=== PATIENT | male | born 1940 | race Caucasian/White ===

== ENCOUNTER 2018-01-23 05:51 | Inpatient (IN) | payer OTHER ==
[~2018-01-23] VITALS: Ht 167.6 cm; Wt 82.9 kg
[~2018-01-23 05:51] MED LIST: ASPCH81X PO; ATEN-173 PO; ATOR-22 PO; BENA-3 PO; DORZ1SOL6 OPR; GLIP-199 PO; LATA0.009 OPR; METF500T PO; MULT-506 PO; PLV75 PO; URSO300C4 PO
[2018-01-23] MEDS ORDERED: BENA-4 PO (06:33)
[2018-01-23] MEDS ORDERED: ATOR-24 PO (06:34)
[2018-01-23] MEDS ORDERED: METF500T5 PO (06:40)
--- NOTE | 2018-01-23 06:40 | EMERGENCY ROOM VISIT NOTE ---
History Report prepared by Linda: Awais Thomas Under the Supervision of: Dr. Donis Ovalles M.D. 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 and [facility]. This evening developed fever and nausea starting around 2300 last evening. History of Present Illness The patient is a 77 year old male with a history of diabetes, a heart attack with stent placement, reflux cholangitis and a cholecystectomy who presents to the Emergency Room with complaints of a worsening illness that started around 7 hours ago. Per the patient's , the patient is having another cholangitis attack, and the patient says that his current symptoms feel like his prior cholangitis bouts. The patient has been seen here 3 times in the past 6 years for cholangitis bouts, but it has been about 2 or 3 years since he had one here. He says that "bacteria backs up into the liver from the intestines". The patient notes that he has had multiple surgeries here and at [facility] for this. He says that his symptoms started around 2300 last night, but really worsened upon waking this morning. The patient states that he felt completely fine before 2300. He says that when he woke up, he had some abdominal pain, and felt like he had to burp. He then proceeded to have cold shakes, and had a noted temperature of 100.9. He says that he took Tylenol, but did not take his Cipro/ Flagyl. He states that he vomited 4 times this morning, and was having rigors. He says that he currently feels a bit better than when he did earlier this morning. The patient adds that he had a solid bowel movement 10 minutes before coming here. He denies any chest pain, shortness of breath, or urinary symptoms. Source of History: patient, spouse/significant other Onset: Around 7 hours ago Position: other (global) Symptom Intensity: thinks it is another cholangitis bout Quality: other (illness) Timing: worsening Associated Symptoms: + fevers, + chills (cold shakes), + nausea, + vomiting , + abdominal pain, No chest pain, No SOB, No urinary symptoms Review of Systems See HPI for pertinent positives & negatives. A total of 10 systems reviewed and were otherwise negative. Past Medical & Surgical Medical Problems: (1) Anginal pain (2) Carotid stenosis (3) DM2 (diabetes mellitus, type 2) (4) Glaucoma (5) HLD (hyperlipidemia) (6) HTN (hypertension) (7) Recurrent cholangitis (8) reflux cholangitis Surgical Problems: (1) H/O carotid endarterectomy (2) H/O hernia repair (3) History of cataract surgery (4) History of cholecystectomy (5) S/P cholecystectomy Old medical records were reviewed. Nurse's notes were reviewed and I agree with. Family History FH: cancer FH: diabetes mellitus FH: gallbladder disease FH: heart disease FH: hypertension Social History Smoking Status: Never Smoker Drug Use: none Marital Status: Housing Status: lives with significant other Occupation Status: retired Current/Historical Medications Scheduled Aspirin (Aspirin Chewable), 81 MG PO QAM Atorvastatin (Lipitor), 40 MG PO DAILY Benazepril/Hctz (Lotensin Hct), 1 TAB PO DAILY Clopidogrel (Plavix), 75 MG PO DAILY Dorzolamide Hcl-Timolol Maleat (Cosopt Oph), 1 DROPS OPR BID Fluticasone Propionate (Fluticasone Propionate), 2 SPRAYS BARON DAILY Glipizide (Glipizide Er), 10 MG PO BIDM Latanoprost 0.005% Oph (Xalatan 0.005% Oph), 1 DROP OPR HS Metformin Hcl Er (Glucophage Er), 500 MG PO DAILY Multivitamin (Multivitamin), 1 TAB PO DAILY Nitroglycerin (Nitrostat), 0.4 MG UT PRN Ursodiol (Actigall), 300 MG PO TIDM Miscellaneous Medications Acetaminophen (Tylenol Extra Strength) Allergies Coded Allergies: Sulfamethoxazole w/Trimethoprim (Verified Allergy, Mild, HIVES, 01/23/18) Physical Exam Vital Signs Date Time Temp Pulse Resp B/P (MAP) Pulse Ox O2 Delivery O2 Flow Rate FiO2 01/23/18 09:09 88 20 107/65 95 Room Air 01/23/18 08:55 95 Room Air 01/23/18 08:55 90 01/23/18 07:28 99 20 107/74 96 Room Air 01/23/18 05:57 37.4 116 22 139/79 97 Room Air Physical Exam General: Non-ill appearing older male in no acute distress. HEENT: Normal cephalic atraumatic. Pupils are equal round and reactive to light. Extraocular movements are intact. Oropharynx is pink with moist mucous membranes. No swelling of the mouth lips or tongue. Neck: Supple with a midline trachea. No meningeal signs or stiffness, no JVD or bruits. No Stridor. Chest: Clear to auscultation bilaterally. No wheezes or rhonchi. No increased work of breathing. Heart: regular rate and rhythm. Abdomen: Soft and minimally tender in the right upper quadrant, nondistended without rebound guarding or rigidity. Extremities: No cyanosis clubbing or edema. No calf tenderness or assymetry Spine/Back. Non tender to palpation. No CVA tenderness Skin: Good turgor without rashes. Neurologic exam: Cranial nerves two through 12 are intact. Motor and sensation are intact and symmetrical throughout. Medical Decision & Procedures Laboratory Results 01/23/18 06:39 Red Blood Count 5.13, Mean Corpuscular Volume 82.8, Mean Corpuscular Hemoglobin 30.0, Mean Corpuscular Hemoglobin Concent 36.2, Mean Platelet Volume 10.6, Neutrophils (%) (Auto) 87.1, Lymphocytes (%) (Auto) 8.6, Monocytes (%) (Auto) 3.3, Eosinophils (%) (Auto) 0.6, Basophils (%) (Auto) 0.2, Neutrophils # (Auto) 4.46, Lymphocytes # (Auto) 0.44, Monocytes # (Auto) 0.17, Eosinophils # (Auto) 0.03, Basophils # (Auto) 0.01 01/23/18 06:39 Test 01/23/18 06:39 01/23/18 06:48 01/23/18 07:03 White Blood Count 5.12 K/uL (4.8-10.8) Red Blood Count 5.13 M/uL (4.7-6.1) Hemoglobin 15.4 g/dL (14.0-18.0) Hematocrit 42.5 % (42-52) Mean Corpuscular Volume 82.8 fL (80-100) Mean Corpuscular Hemoglobin 30.0 pg (25-34) Mean Corpuscular Hemoglobin Concent 36.2 g/dl (32-36) Platelet Count 83 K/uL (130-400) Mean Platelet Volume 10.6 fL (7.4-10.4) Neutrophils (%) (Auto) 87.1 % Lymphocytes (%) (Auto) 8.6 % Monocytes (%) (Auto) 3.3 % Eosinophils (%) (Auto) 0.6 % Basophils (%) (Auto) 0.2 % Neutrophils # (Auto) 4.46 K/uL (1.4-6.5) Lymphocytes # (Auto) 0.44 K/uL (1.2-3.4) Monocytes # (Auto) 0.17 K/uL (0.11-0.59) Eosinophils # (Auto) 0.03 K/uL (0-0.5) Basophils # (Auto) 0.01 K/uL (0-0.2) RDW Standard Deviation 39.7 fL (36.4-46.3) RDW Coefficient of Variation 13.1 % (11.5-14.5) Immature Granulocyte % (Auto) 0.2 % Immature Granulocyte # (Auto) 0.01 K/uL (0.00-0.02) Anion Gap 10.0 mmol/L (3-11) Est Creatinine Clear Calc Drug Dose 61.5 ml/min Estimated GFR () 83.2 Estimated GFR (Non- 71.8 BUN/Creatinine Ratio 14.8 (10-20) Calcium Level 8.9 mg/dl (8.5-10.1) Total Bilirubin 3.4 mg/dl (0.2-1) Direct Bilirubin 0.6 mg/dl (0-0.2) Aspartate Amino Transf (AST/SGOT) 148 U/L (15-37) Alanine Aminotransferase (ALT/SGPT) 162 U/L (12-78) Alkaline Phosphatase 80 U/L (45-117) Total Protein 6.2 gm/dl (6.4-8.2) Albumin 3.5 gm/dl (3.4-5.0) Lipase 199 U/L (73-393) Bedside Troponin I < 0.030 ng/ml (0-0.045) Bedside Lactic Acid Venous 1.62 mmol/L (0.90-1.70) Laboratory studies as stated above per my review. Medications Administered Medications (Trade) Dose Ordered Sig/Santos Route Start Time Stop Time Status Last Admin Dose Admin Sodium Chloride 1,000 ml @ 999 mls/hr Q1H1M STAT IV 01/23/18 06:41 01/23/18 07:41 DC 01/23/18 06:41 999 MLS/HR Piperacillin Sod/ Tazobactam Sod (Zosyn Iv) 4.5 gm NOW STAT IV 01/23/18 06:41 01/23/18 06:43 DC 01/23/18 06:41 4.5 GM Potassium Chloride (Kcl 10 Meq / Wtr) 10 meq Q1H IV 01/23/18 08:15 01/23/18 09:16 DC 01/23/18 08:50 10 MEQ ECG Per My Interpretation Indication: vomiting Rate (beats per minute): 88 Rhythm: normal sinus Findings: no acute ischemic change, no ectopy Comparison ECG Date: compared to July 03 2016, rate has increased ED Course 0630: Past medical records reviewed. The patient was evaluated in room A3, and a complete history and physical examination were performed. 0641: Zosyn IV 4.5 gm, NSS 1000 ml @ 150 mls/hr IV, NSS 1000 ml @ 999 mls/hr IV. 0726: Upon reevaluation, the patient is stable and getting antibiotics. I discussed the results and treatment plan with the patient. He verbalized agreement of the treatment plan. The patient will be evaluated for further management. 0730: Discussed the patient's case with Dr. Vandana Robins salesperson [employer]. The patient will be evaluated for further management. Medical Decision Differentials include, but are not limited to; cholangitis, sepsis, electrolyte or metabolic abnormality, cardiac disease. This patient comes in as described above. He has a history of recurrent cholangitis after having a gallbladder removal. He typically gets IV antibiotics and admitted. He did have a temperature at home. He also vomited a few times. Given his history and his presentation, I'm very concerned that this is recurrent cholangitis and ordered antibiotics immediately after seen him I also order blood cultures and other blood work. He was ordered Zosyn 4.5 g IV. Blood cultures were obtained. His white count lactic acid not elevated. He was hydrated with IV normal saline. His total bilirubin is moderately elevated and the 3 range. Additionally, LFTs are mildly elevated. He has no other electrolyte or metabolic abnormalities of significance. I do think he needs to be admitted for IV antibiotics and further treatment and evaluation as this is similar to his previous episodes of cholangitis. Medication Reconcilliation Current Medication List: was personally reviewed by me Blood Pressure Screening Patient's blood pressure: Elevated blood pressure Blood pressure disposition: Elevated BP felt to be situational Consults Time Called: 724 Consulting Physician: Dr. Vandana Robins salesperson [employer] Returned Call: 0730 Discussed the patient's case with Dr. Vandana Robins salesperson flying [employer]. The patient will be evaluated for further management. Impression Primary Impression: Cholangitis Scribe Attestation The scribe's documentation has been prepared under my direction and personally reviewed by me in its entirety. I confirm that the note above accurately reflects all work, treatment, procedures, and medical decision making performed by me. Departure Information Dispostion Being Evaluated By Hospitalist Referrals Delroy Smyth M.D. (PCP) Patient Instructions My [facility]
[2018-01-23] MEDS ORDERED: SODIUM CHLORIDE 0.9% 1000ML 1,000 ML IV ONE (06:41)
[2018-01-23] MEDS ORDERED: PIPERACILLIN/TAZOBACTAM 4.5 GM/100ML D5W IV STA (06:41)
[2018-01-23] MEDS ORDERED: SODIUM CHLORIDE 0.9% 1000ML 1,000 ML IV STA (06:41)
[2018-01-23] MEDS ORDERED: CLOP1TAB15 PO (06:42)
[2018-01-23] MEDS ORDERED: NTRGSL/4 UT (06:44)
[2018-01-23 07:08] LABS: BASO % 0.2 %; BASO ABS # 0.01 K/uL (0-0.2); EOS % 0.6 %; EOS ABS # 0.03 K/uL (0-0.5); HEMATOCRIT 42.5 % (42-52); HEMOGLOBIN 15.4 g/dL (14.0-18.0); IG# 0.01 K/uL (0.00-0.02); LYMPH % 8.6 %; LYMPH ABS # 0.44 K/uL (1.2-3.4); MEAN CELL VOLUME 82.8 fL (80-100); MEAN CORPUSCULAR HGB CONC 36.2 g/dl (32-36); MEAN PLATELET VOLUME 10.6 fL (7.4-10.4); MONO % 3.3 %; MONO ABS # 0.17 K/uL (0.11-0.59); NEUT % 87.1 %; NEUT ABS # 4.46 K/uL (1.4-6.5); PLATELET COUNT 83 K/uL (130-400); RED CELL DISTRIBUTION WIDTH CV 13.1 % (11.5-14.5); RED CELL DISTRIBUTION WIDTH SD 39.7 fL (36.4-46.3); WHITE BLOOD COUNT 5.12 K/uL (4.8-10.8)
[2018-01-23 07:17] LABS: POTASSIUM 3.3 mmol/L (3.5-5.1)
[2018-01-23 07:18] LABS: ALBUMIN 3.5 gm/dl (3.4-5.0); CALCIUM 8.9 mg/dl (8.5-10.1)
[2018-01-23 07:20] LABS: TOTAL PROTEIN 6.2 gm/dl (6.4-8.2)
[2018-01-23] MEDS ORDERED: POTASSIUM CHLR 20 MEQ / WTR 20 MEQ in PREMIXED WATER 100 ML IV ONE (07:45)
[2018-01-23] MEDS ORDERED: ACETAMINOPHEN 325 MG TAB PO PRN (08:30)
[2018-01-23] MEDS ORDERED: ONDANSETRON INJ 2 MG/ML 2 ML VIAL IV PRN (08:30)
--- NOTE | 2018-01-23 08:32 | History and Physical ---
History & Physical Date & Time of Service: Jan 23, 2018 at 08:32 Chief Complaint: Colongitis Attack,Vomiting,Cold,Abd Pain,Aches Primary Care Physician: Delroy Smyth M.D. History of Present Illness Source: patient, spouse, clinic records, hospital records 77 year old male with a history of diabetes, heart attack with stent placement, recurrent cholangitis, carotid stenosis, Cholecystectomy in 2005 complicated by common bile duct injury requiring hepaticojejunostomy, presents to the Emergency Room with complaints that seems to be similar when starting to have cholangitis. Pt said that he was doing fine yesterday when around 11PM last night, he started to have abdominal discomfort, feel rigor and cold. He said that he vomited 4 times during the night. He said that he had a low grade fever and felt achy. Pt said that he was awake almost the entire night. He said that this morning symptoms seems to progress. He said that last time he had an episode of cholangitis was about 3 years ago. Pt said that only thing he could think that might trigger his symptom was the fact that he worn a tight belt yesterday. Pt said that in the past his symptoms triggered after he leaned on a bench for about 10-15 minutes that was pushing on his abdomen. He said that his GI doctor usually gave him Flagyl to take in case if he suspects an attack. He said that he did not take any Flagyl because the symptoms occurred to fast. He said that he had a solid BM before coming to the ER. Currently patient said that he feels much better. Denies any abdominal pain, nausea, dizziness, chest pain and SOB Past Medical/Surgical History Medical Problems: (1) Acute coronary syndrome (2) Anginal pain (3) Carotid stenosis (4) DM2 (diabetes mellitus, type 2) (5) Elevated troponin (6) Glaucoma (7) HLD (hyperlipidemia) (8) HTN (hypertension) (9) Recurrent cholangitis (10) reflux cholangitis Surgical Problems: (1) H/O carotid endarterectomy (2) H/O hernia repair (3) History of cataract surgery (4) History of cholecystectomy (5) S/P cholecystectomy Family History FH: cancer FH: diabetes mellitus FH: gallbladder disease FH: heart disease FH: hypertension Social History Smoking Status: Never Smoker Drug Use: none Marital Status: Housing status: lives with family Occupational Status: retired Immunizations History of Influenza Vaccine: Yes Influenza Vaccine Date: Jul 06, 2012 History of Tetanus Vaccine?: Yes Tetanus Immunization Date: Aug 05, 2009 History of Pneumococcal: Yes Pneumococcal Date: Aug 05, 2009 History of Hepatitis B Vaccine: No Allergies Coded Allergies: Sulfamethoxazole w/Trimethoprim (Verified Allergy, Mild, HIVES, 01/23/18) Home Medications Scheduled Aspirin (Aspirin Chewable), 81 MG PO QAM Atorvastatin (Lipitor), 40 MG PO DAILY Benazepril/Hctz (Lotensin Hct), 1 TAB PO DAILY Clopidogrel (Plavix), 75 MG PO DAILY Dorzolamide Hcl-Timolol Maleat (Cosopt Oph), 1 DROPS OPR BID Fluticasone Propionate (Fluticasone Propionate), 2 SPRAYS BARON DAILY Glipizide (Glipizide Er), 10 MG PO BIDM Latanoprost 0.005% Oph (Xalatan 0.005% Oph), 1 DROP OPR HS Metformin Hcl Er (Glucophage Er), 500 MG PO DAILY Multivitamin (Multivitamin), 1 TAB PO DAILY Nitroglycerin (Nitrostat), 0.4 MG UT PRN Ursodiol (Actigall), 300 MG PO TIDM Miscellaneous Medications Acetaminophen (Tylenol Extra Strength) Review of Systems Constitutional: + fever, + chills Eyes: No worsening of vision, No eye pain ENT: + problem reported (decrease hearing function), No sore throat, No trouble swallowing Respiratory: No cough, No sputum, No shortness of breath Cardiovascular: No chest pain, No palpitations Abdomen: + nausea, + vomiting, + problem reported (abdominal discomfort) Musculoskeletal: No calf pain Genitourinary - Male: No hematuria, No dysuria Neurologic: No memory loss, No paralysis Psychiatric: No substance abuse Endocrine: No fatigue Hematologic / Lymphatic: No night sweats Integumentary: No rash, No itch Physical Exam Vital Signs Date Time Temp Pulse Resp B/P (MAP) Pulse Ox O2 Delivery O2 Flow Rate FiO2 01/23/18 07:28 99 20 107/74 96 Room Air 01/23/18 05:57 37.4 116 22 139/79 97 Room Air General Appearance: WD/WN, no apparent distress Head: normocephalic, atraumatic Eyes: normal inspection, PERRL, EOMI ENT: + pertinent finding (decrease hearing function) Neck: supple, no JVD Respiratory/Chest: normal breath sounds, no respiratory distress, no accessory muscle use Cardiovascular: regular rate, rhythm, no JVD, + systolic murmur Abdomen/GI: normal bowel sounds, non tender, soft Back: no CVA tenderness Extremities/Musculoskelatal: no calf tenderness Neurologic/Psych: no motor/sensory deficits, alert, oriented x 3 Skin: warm/dry, no rash Diagnostics Laboratory Results Results Past 24 Hours Test 01/23/18 06:39 01/23/18 06:48 01/23/18 07:03 Range/Units White Blood Count 5.12 4.8-10.8 K/uL Red Blood Count 5.13 4.7-6.1 M/uL Hemoglobin 15.4 14.0-18.0 g/dL Hematocrit 42.5 42-52 % Mean Corpuscular Volume 82.8 80-100 fL Mean Corpuscular Hemoglobin 30.0 25-34 pg Mean Corpuscular Hemoglobin Concent 36.2 32-36 g/dl Platelet Count 83 130-400 K/uL Mean Platelet Volume 10.6 7.4-10.4 fL Neutrophils (%) (Auto) 87.1 % Lymphocytes (%) (Auto) 8.6 % Monocytes (%) (Auto) 3.3 % Eosinophils (%) (Auto) 0.6 % Basophils (%) (Auto) 0.2 % Neutrophils # (Auto) 4.46 1.4-6.5 K/uL Lymphocytes # (Auto) 0.44 1.2-3.4 K/uL Monocytes # (Auto) 0.17 0.11-0.59 K/uL Eosinophils # (Auto) 0.03 0-0.5 K/uL Basophils # (Auto) 0.01 0-0.2 K/uL RDW Standard Deviation 39.7 36.4-46.3 fL RDW Coefficient of Variation 13.1 11.5-14.5 % Immature Granulocyte % (Auto) 0.2 % Immature Granulocyte # (Auto) 0.01 0.00-0.02 K/uL Sodium Level 138 136-145 mmol/L Potassium Level 3.3 3.5-5.1 mmol/L Chloride Level 104 98-107 mmol/L Carbon Dioxide Level 24 21-32 mmol/L Anion Gap 10.0 3-11 mmol/L Blood Urea Nitrogen 15 7-18 mg/dl Creatinine 1.00 0.60-1.40 mg/dl Est Creatinine Clear Calc Drug Dose 61.5 ml/min Estimated GFR () 83.2 Estimated GFR (Non- 71.8 BUN/Creatinine Ratio 14.8 10-20 Random Glucose 209 70-99 mg/dl Calcium Level 8.9 8.5-10.1 mg/dl Total Bilirubin 3.4 0.2-1 mg/dl Direct Bilirubin 0.6 0-0.2 mg/dl Aspartate Amino Transf (AST/SGOT) 148 15-37 U/L Alanine Aminotransferase (ALT/SGPT) 162 12-78 U/L Alkaline Phosphatase 80 45-117 U/L Total Protein 6.2 6.4-8.2 gm/dl Albumin 3.5 3.4-5.0 gm/dl Lipase 199 73-393 U/L Bedside Troponin I < 0.030 0-0.045 ng/ml Bedside Lactic Acid Venous 1.62 0.90-1.70 mmol/L Microbiology Results 01/23/18 Blood Culture, Received Pending 01/23/18 Blood Culture, Received Pending Impression Assessment and Plan Abdominal discomfort associated with nausea and vomiting Hx of recurrent cholangitis Symptoms seem to be similar with his past cholangitis Elevated liver enzymes and bilirubin Received Zosyn in the ER and IVF Continue Zosyn IV Gently IVF Will keep NPO for now, then clear liquid diet later GI consult Clinically improved Elevated Liver enzymes AST 148 and ALT 162 Monitor liver enzymes Avoid hepatotoxic agents CAD Asymptomatic Continue plavix and aspirin and statin 2D echo report 06/2017: The left ventricular cavity size is normal. The LV wall thickness is mildly increased (concentric). The left ventricular wall motion is normal. The qualitative LV ejection fraction is 60-64% (normal). The aortic valve has three leaflets. The aortic valve is moderately calcified. Moderate aortic valve stenosis is present. Degree of aortic stenosis may be mildly underestimated by current study ie approaching severe. Mild mitral regurgitation is present. Carotid stenosis Continue plavix/aspirin Stable DM type 2 Last Hba1c 7.9 (10/11) Check Hba1c Will hold po med Continue monitor BS Will start on insulin sliding scale Hypokalemia Possible related to vomiting K replaced Monitor BMP HTN BP stable Will resume BP med in am Continue monitor BP Thrombocytopenia Platelet 83 Continue monitor CBC DVT px on Will do scd due to low platelet CODE STATUS FULL CODE Resuscitation Status VTE Prophylaxis Will order VTE Prophylaxis: Yes
[2018-01-23] MEDS ORDERED: FLNIN NAE (08:35)
[2018-01-23] MEDS ORDERED: ACET-1138 (08:35)
[2018-01-23] MEDS ORDERED: PIPERACILL/TAZOBAC CONSULT ACTIVE PRN (08:45)
[2018-01-23] MEDS: POTASSIUM CHLORIDE 10 MEQ / 100ML WTR IV SCH ×2 (08:50→09:53)
[2018-01-23 08:55] VITALS: O2SAT 95; Ht 167.6 cm; Wt 82.9 kg
[2018-01-23 09:54] VITALS: O2SAT 94
[2018-01-23 10:05] VITALS: BP 96/61; PULSE 97; TEMP 37; O2SAT 95
[2018-01-23] MEDS ORDERED: SODIUM CHLORIDE 0.9% 1000ML 1,000 ML IV SCH (10:45)
[2018-01-23] MEDS ORDERED: GLUCOSE 10 TABS/TUBE PO PRN (11:30)
[2018-01-23] MEDS ORDERED: DEXTROSE 50% 50 ML SYR IV PRN (11:30)
[2018-01-23] MEDS ORDERED: GLUCAGON FOR INJ 1 MG VIAL SQ PRN (11:30)
[2018-01-23] MEDS ORDERED: GLUCOSE 40% GEL 15 GM TUBE PO PRN (11:30)
[2018-01-23] MEDS: FLUTICASONE PROPIONATE NA SPR 16 GM BTL NAE SCH (11:32)
[2018-01-23] MEDS: ASPIRIN 81 MG ECTAB PO SCH (11:32)
[2018-01-23] MEDS: ATORVASTATIN 40 MG TAB PO SCH (11:32)
[2018-01-23] MEDS: CLOPIDOGREL BISULFATE 75 MG TAB PO SCH (11:33)
[2018-01-23] MEDS: URSODIOL 300 MG CAP PO SCH ×2 (11:34→16:59)
[2018-01-23] MEDS: PIPERACILL/TAZOBAC IV 3.375 GM in DEXTROSE 5% 100ML 100 ML IV SCH ×2 (11:36→21:09)
[2018-01-23 15:24] VITALS: BP 127/71; PULSE 62; TEMP 37.2; O2SAT 98
--- NOTE | 2018-01-23 15:31 | DIAGNOSTIC IMAGING REPORT ---
MRCP CLINICAL HISTORY: Cholangitis. COMPARISON STUDY: Abdominal CT dated 06/06/2015. TECHNIQUE: Abdominal MRCP is performed utilizing various T2-weighted sequences in the axial and coronal planes. IV contrast was not administered for this examination. 3-D reformats are created and assessed. FINDINGS: The gallbladder is surgically absent. There is evidence of hepaticojejunostomy near the level of the hepatic hilum. Only minimal central intrahepatic biliary ductal dilatation is identified. The distal common bile duct is normal in caliber and measures up to 5 mm in diameter. No filling defects are seen in the distal common duct to suggest choledocholithiasis. The pancreatic duct is normal in caliber. The hepatic parenchyma is normal as visualized. The spleen and adrenal glands are grossly unremarkable. The kidneys demonstrate mild cortical atrophy and are without hydronephrosis. A 2.5 cm cyst is noted in the right kidney. The pancreas is normal as visualized. There is no upper abdominal ascites or adenopathy. A tiny hiatal hernia is observed. IMPRESSION: 1. The gallbladder is surgically absent and there changes from hepaticojejunostomy. 2. Only minimal intrahepatic biliary ductal dilatation is identified. 3. The distal common bile duct is normal in caliber. No intraluminal debris is identified. 4. The hepatic parenchyma is normal as visualized. Dictated: 01/23/2018 2:56 PM Transcribed: 01/23/2018 3:31 PM [email or web address]_Angelo Electronically signed by: Cem Reyes M.D. 01/23/2018 3:46 PM Dictated Date/Time: 01/23/2018 2:56 PM
--- NOTE | 2018-01-23 17:02 | Gastrointestinal Consultation ---
Gastrointestinal Consultation Date of Consultation: Jan 23, 2018 Attending Physician: Gisele Barrera Consulting Physician: Reason for Consultation: Cholangitis History of Present Illness Patient is a 77 year old male with comorbids of DM. CAD, Hx of Cholecystectomy in 2005 complicated by common bile duct injury requiring hepaticojejunostomy, then had likely anastomotic stritcture in 2008 requiring PTC with balloon dilations, Hx of recurrent cholangitis, carotid stenosis presents to the hospital with suspected cholangitis. Patient was doing fine till he had an episode of chills with nausea and abdominal discomfort. His Temp was 100.9. He has prophylactic ABx at home but did not take. He denies any jaundice, melena or rectal bleeding. No diarrhea or weight loss. His abdominal discomfort has resolved and no episode of fever or chills since admission. Past Medical/Surgical History Medical Problems: (1) Acute coronary syndrome Status: Acute (2) Cholangitis Status: Acute (3) Elevated troponin Status: Acute Past Medical History: (1) Acute coronary syndrome (2) Anginal pain (3) Carotid stenosis (4) DM2 (diabetes mellitus, type 2) (5) Elevated troponin (6) Glaucoma (7) HLD (hyperlipidemia) (8) HTN (hypertension) (9) Recurrent cholangitis (10) reflux cholangitis Past Surgical History: (1) H/O carotid endarterectomy (2) H/O hernia repair (3) History of cataract surgery (4) History of cholecystectomy (5) S/P cholecystectomy, Bile duct injury, s/p hepaticojejunostomy Family History FH: cancer FH: diabetes mellitus FH: gallbladder disease FH: heart disease FH: hypertension Social History Smoking Status: Never Smoker Drug Use: none Marital Status: Housing Status: lives with significant other Occupation Status: retired Allergies Coded Allergies: Sulfamethoxazole w/Trimethoprim (Verified Allergy, Mild, HIVES, 01/23/18) Current Medications Home Meds and Scripts Medications Dose Route/Sig Max Daily Dose Days Date Category Dose Instructions Tylenol Extra Strength (Acetaminophen) 500 Mg Tab 01/23/18 Reported Fluticasone Propionate 50 Mcg/Act Spr 2 Sprays BARON DAILY 01/23/18 Reported Nitrostat (Nitroglycerin) 0.4 Mg Tab 0.4 Mg UT PRN 01/23/18 Reported NEEDED FOR CHEST PAIN: ONE TABLET UNDER THE TONGUE EVERY 5 MINUTES, UP TO 3 DOSES. Plavix (Clopidogrel Bisulfate) 75 Mg Tab 75 Mg PO DAILY 01/23/18 Reported Glucophage Er (Metformin HCl) 500 Mg Tab 500 Mg PO DAILY 01/23/18 Reported Lipitor (Atorvastatin Calcium) 40 Mg Tab 40 Mg PO DAILY 01/23/18 Reported Lotensin Hct (Benazepril/HCTZ) 20 Mg/12.5 Mg Tab 1 Tab PO DAILY 01/23/18 Reported Multivitamin (Multivitamins) Tab 1 Tab PO DAILY 07/01/16 Reported Aspirin Chewable (Aspirin) 81 Mg Chew 81 Mg PO QAM 11/29/15 Reported Actigall (Ursodiol) 300 Mg Cap 300 Mg PO TIDM 11/29/15 Reported Glipizide Er (Glipizide) 10 Mg Tab 10 Mg PO BIDM 11/29/15 Reported Cosopt Oph (Dorzolamide Hcl-Timolol Maleat) 1 Amaris Amaris 1 Drops OPR BID 11/29/15 Reported Xalatan 0.005% Oph (Latanoprost) Soln 1 Drop OPR HS 11/29/15 Reported Review of Systems Constitutional: No sweats, No weight loss Eyes: No worsening of vision, No eye pain ENT: No hearing loss, No unusual epistaxis Respiratory: No cough, No sputum Cardiac: No chest pain, No edema Abdomen: + see HPI Musculoskeletal: No joint pain, No muscle pain Male : No dysuria, No urinary frequency Neuro: No memory loss, No weakness Psych: No depression symptoms, No anxiety Heme: No abnormal bleeding/bruising, No clotting problems Endo: No fatigue Skin: No rash, No itch Physical Exam Date Time Temp Pulse Resp B/P (MAP) Pulse Ox O2 Delivery O2 Flow Rate FiO2 01/23/18 15:24 37.2 62 18 127/71 (89) 98 Room Air 01/23/18 10:05 37.0 97 16 96/61 (73) 95 Room Air 01/23/18 09:54 88 22 94/60 94 Room Air 01/23/18 09:09 88 20 107/65 95 Room Air 01/23/18 08:55 95 Room Air 01/23/18 08:55 90 01/23/18 07:28 99 20 107/74 96 Room Air 01/23/18 05:57 37.4 116 22 139/79 97 Room Air General Appearance: no apparent distress Eyes: PERRL ENT: normal ENT inspection Neck: supple, no JVD Respiratory/Chest: lungs clear, normal breath sounds Cardiovascular: regular rate, rhythm, no JVD Abdomen: normal bowel sounds, non tender, soft Extremities: non-tender, no pedal edema Neurologic/Psych: oriented x 3 Skin: no jaundice Laboratory Results Last 24 Hours Test 01/23/18 06:39 01/23/18 06:48 01/23/18 07:03 01/23/18 11:23 White Blood Count 5.12 K/uL Red Blood Count 5.13 M/uL Hemoglobin 15.4 g/dL Hematocrit 42.5 % Mean Corpuscular Volume 82.8 fL Mean Corpuscular Hemoglobin 30.0 pg Mean Corpuscular Hemoglobin Concent 36.2 g/dl Platelet Count 83 K/uL Mean Platelet Volume 10.6 fL Neutrophils (%) (Auto) 87.1 % Lymphocytes (%) (Auto) 8.6 % Monocytes (%) (Auto) 3.3 % Eosinophils (%) (Auto) 0.6 % Basophils (%) (Auto) 0.2 % Neutrophils # (Auto) 4.46 K/uL Lymphocytes # (Auto) 0.44 K/uL Monocytes # (Auto) 0.17 K/uL Eosinophils # (Auto) 0.03 K/uL Basophils # (Auto) 0.01 K/uL RDW Standard Deviation 39.7 fL RDW Coefficient of Variation 13.1 % Immature Granulocyte % (Auto) 0.2 % Immature Granulocyte # (Auto) 0.01 K/uL Sodium Level 138 mmol/L Potassium Level 3.3 mmol/L Chloride Level 104 mmol/L Carbon Dioxide Level 24 mmol/L Anion Gap 10.0 mmol/L Blood Urea Nitrogen 15 mg/dl Creatinine 1.00 mg/dl Est Creatinine Clear Calc Drug Dose 61.5 ml/min Estimated GFR () 83.2 Estimated GFR (Non- 71.8 BUN/Creatinine Ratio 14.8 Random Glucose 209 mg/dl Calcium Level 8.9 mg/dl Total Bilirubin 3.4 mg/dl Direct Bilirubin 0.6 mg/dl Aspartate Amino Transf (AST/SGOT) 148 U/L Alanine Aminotransferase (ALT/SGPT) 162 U/L Alkaline Phosphatase 80 U/L Total Protein 6.2 gm/dl Albumin 3.5 gm/dl Lipase 199 U/L Bedside Troponin I < 0.030 ng/ml Bedside Lactic Acid Venous 1.62 mmol/L Bedside Glucose 169 mg/dl Test 01/23/18 12:00 Urine Color YELLOW Urine Appearance CLEAR Urine pH 6.5 Urine Specific [place] 1.021 Urine Protein NEG Urine Glucose (UA) NEG Urine Ketones 2+ Urine Occult Blood NEG Urine Nitrite NEG Urine Bilirubin NEG Urine Urobilinogen NEG Urine Leukocyte Esterase NEG Impression Patient is a 77 year old male with Hx of bile duct injury during cholecystectomy requiring hepaticojejunostomy, Gilbert syndrome, recurrent cholangitis admitted for chills and suspected cholangitis. Indicated his last similar episode was 3 years ago. Currently no leukocytosis, normal direct bili and transaminases, no fever in the hospital. MRCP showed patent anastomosis with normal diameter CBD and minimal intrahepatic ductal dilation and no debris seen in CBD. 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 (off note, in 2006 he had a SBFT which showed contrast leaked into the biliary tree). Currently, there is no evidence of ongoing cholangitis and his MRCP is reassuring. Plan Continue IV ABx. Clear liquids for today. Monitor for signs of sepsis. Repeat WBC and LFTs tomorrow, if any change to suggest ongoing cholangitis will consider ERCP though may not be doable in view of his steven en y anatomy. If labs are normal then can go home tomorrow with PO ABx to complete 7 days course. If this recurs in the future will need referral for single balloon ERCP to evaluate the anastomosis and sweep the CBD from debris.
[2018-01-23] MEDS: INSULIN ASPART 100 UNITS/ML 3 ML PEN SC SCH ×2 (17:19→21:11)
[2018-01-23] MEDS ORDERED: DOXYCYCLINE HYCLATE 100 MG CAP PO STA (20:05)
--- NOTE | 2018-01-23 20:06 | Progress Note ---
Internal Med Progress Note Date of Service: Jan 23, 2018. Provider Documentation: Made aware by RN of reddened lesion on right lower extremity of patient. Patient had just removed tick as per account. AP Tick bite Doxycycline 200 mg single dose for Lyme dse prophylaxis Will relay to AM provider. Vital Signs: Date Time Temp Pulse Resp B/P (MAP) Pulse Ox O2 Delivery O2 Flow Rate FiO2 01/24/18 12:54 36.8 57 20 97 Room Air 01/24/18 08:03 36.8 57 20 150/80 (103) 97 Room Air 01/24/18 08:00 Room Air 01/24/18 00:00 Room Air 01/23/18 23:44 37.0 56 18 125/68 (87) 98 Room Air 01/23/18 20:00 Room Air 01/23/18 16:00 Room Air Lab Results: Results Past 24 Hours Test 01/23/18 16:23 01/23/18 19:28 01/24/18 06:19 01/24/18 07:46 Range/Units Bedside Glucose 155 238 141 70-99 mg/dl White Blood Count 6.63 4.8-10.8 K/uL Red Blood Count 4.80 4.7-6.1 M/uL Hemoglobin 14.1 14.0-18.0 g/dL Hematocrit 40.6 42-52 % Mean Corpuscular Volume 84.6 80-100 fL Mean Corpuscular Hemoglobin 29.4 25-34 pg Mean Corpuscular Hemoglobin Concent 34.7 32-36 g/dl RDW Standard Deviation 41.3 36.4-46.3 fL RDW Coefficient of Variation 13.4 11.5-14.5 % Platelet Count 73 130-400 K/uL Mean Platelet Volume 10.1 7.4-10.4 fL Sodium Level 143 136-145 mmol/L Potassium Level 3.8 3.5-5.1 mmol/L Chloride Level 109 98-107 mmol/L Carbon Dioxide Level 28 21-32 mmol/L Anion Gap 5.0 3-11 mmol/L Blood Urea Nitrogen 9 7-18 mg/dl Creatinine 1.04 0.60-1.40 mg/dl Est Creatinine Clear Calc Drug Dose 59.1 ml/min Estimated GFR () 79.3 Estimated GFR (Non- 68.4 BUN/Creatinine Ratio 8.8 10-20 Random Glucose 128 70-99 mg/dl Calcium Level 8.4 8.5-10.1 mg/dl Total Bilirubin 3.9 0.2-1 mg/dl Aspartate Amino Transf (AST/SGOT) 62 15-37 U/L Alanine Aminotransferase (ALT/SGPT) 119 12-78 U/L Alkaline Phosphatase 69 45-117 U/L Total Protein 5.4 6.4-8.2 gm/dl Albumin 2.8 3.4-5.0 gm/dl Globulin 2.6 2.5-4.0 gm/dl Albumin/Globulin Ratio 1.1 0.9-2 Test 01/24/18 11:22 Range/Units Bedside Glucose 194 70-99 mg/dl
[2018-01-23] MEDS ORDERED: LATANOPROST 0.005% OP SOLN 2.5 ML BTL OPR SCH (21:00)
[2018-01-23 23:44] VITALS: BP 125/68; PULSE 56; TEMP 37; O2SAT 98
[2018-01-24] MEDS: PIPERACILL/TAZOBAC IV 3.375 GM in DEXTROSE 5% 100ML 100 ML IV SCH (04:25)
[2018-01-24 06:43] LABS: HEMATOCRIT 40.6 % (42-52); HEMOGLOBIN 14.1 g/dL (14.0-18.0); MEAN CELL VOLUME 84.6 fL (80-100); MEAN CORPUSCULAR HEMOGLOBIN 29.4 pg (25-34); MEAN CORPUSCULAR HGB CONC 34.7 g/dl (32-36); RED CELL DISTRIBUTION WIDTH CV 13.4 % (11.5-14.5); RED CELL DISTRIBUTION WIDTH SD 41.3 fL (36.4-46.3); WHITE BLOOD COUNT 6.63 K/uL (4.8-10.8)
[2018-01-24 06:48] LABS: MEAN PLATELET VOLUME 10.1 fL (7.4-10.4); PLATELET COUNT 73 K/uL (130-400)
[2018-01-24 07:26] LABS: ALBUMIN 2.8 gm/dl (3.4-5.0); CALCIUM 8.4 mg/dl (8.5-10.1); CREATININE 1.04 mg/dl (0.60-1.40); POTASSIUM 3.8 mmol/L (3.5-5.1); TOTAL PROTEIN 5.4 gm/dl (6.4-8.2)
[2018-01-24 08:03] VITALS: BP 150/80; PULSE 57; TEMP 36.8; O2SAT 97
[2018-01-24] MEDS: FLUTICASONE PROPIONATE NA SPR 16 GM BTL NAE SCH (09:53)
[2018-01-24] MEDS: URSODIOL 300 MG CAP PO SCH ×2 (09:53→11:54)
[2018-01-24] MEDS: ASPIRIN 81 MG ECTAB PO SCH (09:53)
[2018-01-24] MEDS: CLOPIDOGREL BISULFATE 75 MG TAB PO SCH (09:54)
[2018-01-24] MEDS: ATORVASTATIN 40 MG TAB PO SCH (09:54)
--- NOTE | 2018-01-24 10:00 | Gastroenterology Progress Note ---
Gastroenterology Progress Note Patient seen and examined today, feels fine, no fever. Abdomen is soft and nontender on exam. LFTs reviewed, AST and ALT trending down, no leukocytosis. Discussed with the patient about the findings, he would like to defer attempting ERCP at this time. He agrees that if this recurs again or more frequent then will need ERCP to further evaluate his CBD, this can be arranged at [facility]iary center as he will likely need Balloon assisted enteroscopy given his post surgical anatomy. He will follow as scheduled in GI clinic.
[2018-01-24] MEDS: INSULIN ASPART 100 UNITS/ML 3 ML PEN SC SCH ×2 (10:02→12:29)
--- NOTE | 2018-01-24 11:56 | Progress Note ---
Medicine Progress Note Date & Time of Visit: Jan 24, 2018 at 11:38. Subjective Pt was seen and examined Lying in bed with no distress Pt said that he feels fine He tolerated his diet Pt removed a tick on his right leg last night He said that he usually removed tick in the past on him Doxycycline [id number] was given Denies any abdominal pain, palpitation, dizziness, nausea, vomiting and SOB Objective Last 8 Hrs Date Time Temp Pulse Resp B/P (MAP) Pulse Ox O2 Delivery O2 Flow Rate FiO2 01/24/18 08:03 36.8 57 20 150/80 (103) 97 Room Air 01/24/18 08:00 Room Air Physical Exam: General- No acute distress Head- atraumatic Eyes- PERRL, EOMI ENT- oropharynx clear Neck- supple, no JVD Lungs- clear to auscultation Heart- +murmur Abdomen- normal bowel sounds, soft Extremities- no calf tenderness, redness posterolateral of right knee (where the tick removed) Neuro- alert, oriented x 3; PERRL, EOMI Skin- warm & dry Laboratory Results: Last 24 Hours Test 01/23/18 12:00 01/23/18 16:23 01/23/18 19:28 01/24/18 06:19 Urine Color YELLOW Urine Appearance CLEAR Urine pH 6.5 Urine Specific [place] 1.021 Urine Protein NEG Urine Glucose (UA) NEG Urine Ketones 2+ Urine Occult Blood NEG Urine Nitrite NEG Urine Bilirubin NEG Urine Urobilinogen NEG Urine Leukocyte Esterase NEG Bedside Glucose 155 mg/dl 238 mg/dl White Blood Count 6.63 K/uL Red Blood Count 4.80 M/uL Hemoglobin 14.1 g/dL Hematocrit 40.6 % Mean Corpuscular Volume 84.6 fL Mean Corpuscular Hemoglobin 29.4 pg Mean Corpuscular Hemoglobin Concent 34.7 g/dl RDW Standard Deviation 41.3 fL RDW Coefficient of Variation 13.4 % Platelet Count 73 K/uL Mean Platelet Volume 10.1 fL Sodium Level 143 mmol/L Potassium Level 3.8 mmol/L Chloride Level 109 mmol/L Carbon Dioxide Level 28 mmol/L Anion Gap 5.0 mmol/L Blood Urea Nitrogen 9 mg/dl Creatinine 1.04 mg/dl Est Creatinine Clear Calc Drug Dose 59.1 ml/min Estimated GFR () 79.3 Estimated GFR (Non- 68.4 BUN/Creatinine Ratio 8.8 Random Glucose 128 mg/dl Calcium Level 8.4 mg/dl Total Bilirubin 3.9 mg/dl Aspartate Amino Transf (AST/SGOT) 62 U/L Alanine Aminotransferase (ALT/SGPT) 119 U/L Alkaline Phosphatase 69 U/L Total Protein 5.4 gm/dl Albumin 2.8 gm/dl Globulin 2.6 gm/dl Albumin/Globulin Ratio 1.1 Test 01/24/18 07:46 Bedside Glucose 141 mg/dl Date/Time Source Procedure Growth Status 01/23/18 12:00 Urine , Clean Catch Urine Culture Pending Received Assessment & Plan Abdominal discomfort associated with nausea and vomiting Hx of recurrent cholangitis Symptoms seem to be similar with his past cholangitis Elevated liver enzymes and bilirubin on admission MRCP done showed the gallbladder is surgically absent and there changes from hepaticojejunostomy. Only minimal intrahepatic biliary ductal dilatation is identified.The distal common bile duct is normal in caliber. No intraluminal debris is identified. Liver enzymes trending down Received Zosyn for 2 days Case discussed with GI Since liver enzymes improves and pt clinically improves significantly ok to discharge pt home If symptoms reoccur, plan to get a ERCP done Will discharge with cipro and flagyl Tolerated diet Follow up with GI Elevated Liver enzymes AST 148 and ALT 162 Liver enzymes trending down Continue monitor liver enzymes Avoid hepatotoxic agents CAD Asymptomatic Continue plavix and aspirin and statin 2D echo report 06/2017: The left ventricular cavity size is normal. The LV wall thickness is mildly increased (concentric). The left ventricular wall motion is normal. The qualitative LV ejection fraction is 60-64% (normal). The aortic valve has three leaflets. The aortic valve is moderately calcified. Moderate aortic valve stenosis is present. Degree of aortic stenosis may be mildly underestimated by current study ie approaching severe. Mild mitral regurgitation is present. Carotid stenosis Continue plavix/aspirin Stable DM type 2 Last Hba1c 7.9 (10/11) Hba1c pending Will hold po med Continue monitor BS Follow up Hba1c Hypokalemia Possible related to vomiting K replaced Monitor BMP HTN BP stable Resume BP med today Continue monitor BP Thrombocytopenia Platelet 73 No sign of bleeding Continue monitor CBC DVT px on On scd due to low platelet CODE STATUS FULL CODE Disposition Will discharge home today Current Inpatient Medications: Current Inpatient Medications Medications (Trade) Dose Ordered Sig/Santos Route Start Time Stop Time Status Last Admin Dose Admin Acetaminophen (Tylenol Tab) 650 mg Q4H PRN PO 01/23/18 08:30 02/22/18 08:29 01/23/18 21:22 650 MG Ondansetron HCl (Zofran Inj) 4 mg Q6H PRN IV 01/23/18 08:30 02/22/18 08:29 Piperacillin Sod/ Tazobactam Sod 3.375 gm/Dextrose 115 ml @ 28.75 mls/ hr Q8H IV 01/23/18 12:00 02/02/18 11:59 01/24/18 04:25 28.75 MLS/HR Miscellaneous Information (Consult) 1 ea UD PRN N/A 01/23/18 08:45 02/22/18 08:44 Aspirin (Ecotrin Tab) 81 mg QAM PO 01/23/18 09:00 02/22/18 08:59 01/24/18 09:53 81 MG Atorvastatin Calcium (Lipitor Tab) 40 mg DAILY PO 01/23/18 09:00 02/22/18 08:59 01/24/18 09:54 40 MG Clopidogrel Bisulfate (plAVix TAB) 75 mg DAILY PO 01/23/18 09:00 02/22/18 08:59 01/24/18 09:54 75 MG Fluticasone Propionate (Flonase Nasal [place]) 2 sprays DAILY BARON 01/23/18 09:00 02/22/18 08:59 01/24/18 09:53 2 SPRAYS Latanoprost (Xalatan Oph Soln) 1 drops HS OPR 01/23/18 21:00 02/22/18 20:59 01/23/18 21:08 1 DROPS Ursodiol (Actigall Cap) 300 mg TIDM PO 01/23/18 12:00 02/22/18 11:59 01/24/18 09:53 300 MG Insulin Aspart (novoLOG ASPART) SLIDING SCALE If C... ACHS SC 01/23/18 16:30 02/22/18 16:29 01/24/18 10:02 2 UNITS Glucose (Glucose 40% Gel) 15-30 GRAMS 15 GRAMS... UD PRN PO 01/23/18 11:30 02/22/18 11:29 Glucose (Glucose Chew Tab) 4-8 Tablets 4 Tabl... UD PRN PO 01/23/18 11:30 02/22/18 11:29 Dextrose (Dextrose 50% 50ML Syringe) 25-50ML OF 50% DW IV FOR... UD PRN IV 01/23/18 11:30 02/22/18 11:29 Glucagon (Glucagon Inj) 1 mg UD PRN SQ 01/23/18 11:30 02/22/18 11:29
[2018-01-24] MEDS ORDERED: METR-162 PO (12:16)
[2018-01-24] MEDS ORDERED: CIPR-255 PO (12:16)
--- NOTE | 2018-01-24 12:22 | Discharge Instructions ---
Discharge Instructions Date of Service Jan 24, 2018. Admission Reason for Admission: Recurrent Cholangitis Discharge Discharge Diagnosis / Problem: Recurrent Cholangitis, Elevated Liver Enzymes, Thrombocytopenia Discharge Goals Goal(s): Decrease discomfort, Improve function, Improve disease control Activity Recommendations Activity Limitations: resume your previous activity (as tolerated) . Instructions / Follow-Up Instructions / Follow-Up Please call to schedule a follow up with your primary care provider Dr. Smyth in 1 week Follow up with your Gastroenterology doctor Check Liver enzymes and CBC in 1 week Complete course of antibiotic with flagyl and cipro Monitor blood sugar Seek medical attention if your symptoms reoccur Current Hospital Diet Patient's current hospital diet: Diabetes Type 2 Diet, AHA Diet (Heart Healthy) Discharge Diet Recommended Diet: AHA Diet (Heart Healthy), Diabetes Type 2 Diet Procedures Procedures Performed: MRCP Pending Studies Studies pending at discharge: yes List of pending studies: Blood culture Laboratory Results Hemoglobin A1c Test 01/24/18 06:19 Range/Units Medical Emergencies . Who to Call and When: Medical Emergencies: If at any time you feel your situation is an emergency, please call 911 immediately. . Non-Emergent Contact Non-Emergency issues call your: Primary Care Provider, Pharmacists . . "Provider Documentation" section prepared by Jaylon Ross. .
[2018-01-24 12:54] VITALS: BP 150/80; PULSE 57; TEMP 36.8; O2SAT 97
--- NOTE | 2018-01-24 18:20 | Discharge Summary ---
Discharge Summary Date of Service Jan 24, 2018. Discharge Summary Admission Date: Jan 23, 2018 at 08:31 Discharge Date: Jan 24, 2018 Discharge Disposition: Home Principal Diagnosis: Abdominal discomfort associated with nausea and vomiting Secondary Diagnoses/Problems: Hx of recurrent cholangitis CAD Elevated Liver enzymes Carotid stenosis DM type 2 Hypokalemia HTN Thrombocytopenia Procedures: MRCP CLINICAL HISTORY: Cholangitis. COMPARISON STUDY: Abdominal CT dated 06/06/2015. TECHNIQUE: Abdominal MRCP is performed utilizing various T2-weighted sequences in the axial and coronal planes. IV contrast was not administered for this examination. 3-D reformats are created and assessed. FINDINGS: The gallbladder is surgically absent. There is evidence of hepaticojejunostomy near the level of the hepatic hilum. Only minimal central intrahepatic biliary ductal dilatation is identified. The distal common bile duct is normal in caliber and measures up to 5 mm in diameter. No filling defects are seen in the distal common duct to suggest choledocholithiasis. The pancreatic duct is normal in caliber. The hepatic parenchyma is normal as visualized. The spleen and adrenal glands are grossly unremarkable. The kidneys demonstrate mild cortical atrophy and are without hydronephrosis. A 2.5 cm cyst is noted in the right kidney. The pancreas is normal as visualized. There is no upper abdominal ascites or adenopathy. A tiny hiatal hernia is observed. IMPRESSION: 1. The gallbladder is surgically absent and there changes from hepaticojejunostomy. 2. Only minimal intrahepatic biliary ductal dilatation is identified. 3. The distal common bile duct is normal in caliber. No intraluminal debris is identified. 4. The hepatic parenchyma is normal as visualized. Dictated: 01/23/2018 2:56 PM Transcribed: 01/23/2018 3:31 PM [email or web address]_Angelo Electronically signed by: Cem Reyes M.D. 01/23/2018 3:46 PM Dictated Date/Time: 01/23/2018 2:56 PM Consultations: Gastro Medication Reconciliation New Medications: Ciprofloxacin Hcl (Cipro) 500 Mg Tab 500 MG PO BID for 5 Days, #10 TAB Metronidazole (Flagyl) 500 Mg Tab 500 MG PO TID for 5 Days, #15 TAB Continued Medications: Acetaminophen (Tylenol Extra Strength) 500 Mg Tab Aspirin (Aspirin Chewable) 81 Mg Chew 81 MG PO QAM, TAB Atorvastatin (Lipitor) 40 Mg Tab 40 MG PO DAILY, TAB Benazepril/Hctz (Lotensin Hct) 20 Mg/12.5 Mg Tab 1 TAB PO DAILY, TAB Clopidogrel (Plavix) 75 Mg Tab 75 MG PO DAILY, TAB Dorzolamide Hcl-Timolol Maleat (Cosopt Oph) 1 Amaris Amaris 1 DROPS OPR BID Fluticasone Propionate (Fluticasone Propionate) 50 Mcg/Act Spr 2 SPRAYS BARON DAILY Glipizide (Glipizide Er) 10 Mg Tab 10 MG PO BIDM Latanoprost 0.005% Oph (Xalatan 0.005% Oph) Soln 1 DROP OPR HS Metformin Hcl Er (Glucophage Er) 500 Mg Tab 500 MG PO DAILY, TAB Multivitamin (Multivitamin) Tab 1 TAB PO DAILY, TAB Nitroglycerin (Nitrostat) 0.4 Mg Tab 0.4 MG UT PRN, BTL NEEDED FOR CHEST PAIN: ONE TABLET UNDER THE TONGUE EVERY 5 MINUTES, UP TO 3 DOSES. Ursodiol (Actigall) 300 Mg Cap 300 MG PO TIDM Admission Information HPI (per Admitting provider): 77 year old male with a history of diabetes, heart attack with stent placement, recurrent cholangitis, carotid stenosis, Cholecystectomy in 2005 complicated by common bile duct injury requiring hepaticojejunostomy, presents to the Emergency Room with complaints that seems to be similar when starting to have cholangitis. Pt said that he was doing fine yesterday when around 11PM last night, he started to have abdominal discomfort, feel rigor and cold. He said that he vomited 4 times during the night. He said that he had a low grade fever and felt achy. Pt said that he was awake almost the entire night. He said that this morning symptoms seems to progress. He said that last time he had an episode of cholangitis was about 3 years ago. Pt said that only thing he could think that might trigger his symptom was the fact that he worn a tight belt yesterday. Pt said that in the past his symptoms triggered after he leaned on a bench for about 10-15 minutes that was pushing on his abdomen. He said that his GI doctor usually gave him Flagyl to take in case if he suspects an attack. He said that he did not take any Flagyl because the symptoms occurred to fast. He said that he had a solid BM before coming to the ER. Currently patient said that he feels much better. Denies any abdominal pain, nausea, dizziness, chest pain and SOB Physical Exam (per Admitting): General Appearance: WD/WN, no apparent distress Head: normocephalic, atraumatic Eyes: normal inspection, PERRL, EOMI ENT: + pertinent finding (decrease hearing function) Neck: supple, no JVD Respiratory/Chest: normal breath sounds, no respiratory distress, no accessory muscle use Cardiovascular: regular rate, rhythm, no JVD, + systolic murmur Abdomen/GI: normal bowel sounds, non tender, soft Back: no CVA tenderness Extremities/Musculoskelatal: no calf tenderness Neurologic/Psych: no motor/sensory deficits, alert, oriented x 3 Skin: warm/dry, no rash Hospital Course Abdominal discomfort associated with nausea and vomiting Hx of recurrent cholangitis Symptoms seem to be similar with his past cholangitis Elevated liver enzymes and bilirubin on admission MRCP done showed the gallbladder is surgically absent and there changes from hepaticojejunostomy. Only minimal intrahepatic biliary ductal dilatation is identified.The distal common bile duct is normal in caliber. No intraluminal debris is identified. Liver enzymes trending down Received Zosyn for 2 days Case discussed with GI Since liver enzymes improves and pt clinically improves significantly ok to discharge pt home If symptoms reoccur, plan to get a ERCP done Will discharge with cipro and flagyl Tolerated diet Follow up with GI Elevated Liver enzymes AST 148 and ALT 162 Liver enzymes trending down Continue monitor liver enzymes Avoid hepatotoxic agents CAD Asymptomatic Continue plavix and aspirin and statin 2D echo report 06/2017: The left ventricular cavity size is normal. The LV wall thickness is mildly increased (concentric). The left ventricular wall motion is normal. The qualitative LV ejection fraction is 60-64% (normal). The aortic valve has three leaflets. The aortic valve is moderately calcified. Moderate aortic valve stenosis is present. Degree of aortic stenosis may be mildly underestimated by current study ie approaching severe. Mild mitral regurgitation is present. Carotid stenosis Continue plavix/aspirin Stable DM type 2 Last Hba1c 7.9 (10/11) Hba1c pending Will hold po med Continue monitor BS Follow up Hba1c Hypokalemia Possible related to vomiting K replaced Monitor BMP HTN BP stable Resume BP med today Continue monitor BP Thrombocytopenia Platelet 73 No sign of bleeding Continue monitor CBC DVT px on On scd due to low platelet CODE STATUS FULL CODE Disposition Will discharge home today Total time spent on discharge = 35 minutes This includes examination of the patient, discharge planning, medication reconciliation, and communication with other providers. Discharge Instructions Discharge Instructions Date of Service Jan 24, 2018. Admission Reason for Admission: Recurrent Cholangitis Discharge Discharge Diagnosis / Problem: Recurrent Cholangitis, Elevated Liver Enzymes, Thrombocytopenia Discharge Goals Goal(s): Decrease discomfort, Improve function, Improve disease control Activity Recommendations Activity Limitations: resume your previous activity (as tolerated) . Instructions / Follow-Up Instructions / Follow-Up Please call to schedule a follow up with your primary care provider Dr. Smyth in 1 week Follow up with your Gastroenterology doctor Check Liver enzymes and CBC in 1 week Complete course of antibiotic with flagyl and cipro Monitor blood sugar Seek medical attention if your symptoms reoccur Current Hospital Diet Patient's current hospital diet: Diabetes Type 2 Diet, AHA Diet (Heart Healthy) Discharge Diet Recommended Diet: AHA Diet (Heart Healthy), Diabetes Type 2 Diet Procedures Procedures Performed: MRCP Pending Studies Studies pending at discharge: yes List of pending studies: Blood culture Laboratory Results Hemoglobin A1c Test 01/24/18 06:19 Range/Units Medical Emergencies . Who to Call and When: Medical Emergencies: If at any time you feel your situation is an emergency, please call 911 immediately. . Non-Emergent Contact Non-Emergency issues call your: Primary Care Provider, Web Search Evaluator . . "Provider Documentation" section prepared by Jaylon Ross. . Additional Copies To Delroy Smyth M.D.
--- NOTE | 2018-01-27 11:44 | EDITING REQUIRED CODING QUERY ---
CODING QUERY To promote full compliance with coding requirements relating to patient care, provider participation is requested in all cases of remote coders uncertainty. Please assist us with the question(s) below: Coding Question(s): Patient admitted with abdominal pain. Prior history of cholangitis. MRCP nonrevealing. Please document the etiology of the abdominal pain if known or suspected. Thank you! Marcelo Kessler [facility] Physician's Response(s): Transient cholangitis Principal Diagnosis: "_that condition established after study, to be chiefly responsible for occasioning the admission of the patient to the hospital for care." Co-Existing Principal Diagnosis: "_when two or more diagnoses equally meet the criteria for principal diagnosis as determined by the circumstances of admission, diagnostic work up, and/or therapy provided, and the Alphabetic Index, Tabular List, or another coding guideline does not provide sequencing direction, any one of the diagnoses may be sequenced first." "When the physician has documented what appears to be a current diagnosis in the body of the record, but has not included the diagnosis in the final diagnostic statement, the physician should be asked whether the diagnosis should be added." (Source Coding [facility] 2 QTR90. p3-4)
== END 2018-01-24 13:20 | disposition home or self-care (01) | DRG 446 ==
LOC: C.EDB 05:53 → C.MS2W 08:31 → CANRESERV 09:06 → ENRESERV 09:06 → C.MS2W 22:01
PROVIDERS: ADMIT Internal Medicine; ATTEND Internal Medicine
PROC: BF3 Imaging, Hepatobiliary System and Pancreas, Magnetic Resonance Imaging (MRI) (ICD-10-PCS; principal; 2018-01-23)
DX: K83.0 Cholangitis (principal); E11.9 Type 2 diabetes mellitus without complications; S81.851A Open bite, right lower leg, initial encounter; H40.9 Unspecified glaucoma; I10 Essential (primary) hypertension; E78.5 Hyperlipidemia, unspecified; Z88.2 Allergy status to sulfonamides; I25.2 Old myocardial infarction; I25.10 Atherosclerotic heart disease of native coronary artery without angina pectoris; I65.29 Occlusion and stenosis of unspecified carotid artery; E87.6 Hypokalemia; D69.6 Thrombocytopenia, unspecified; Z95.818 Presence of other cardiac implants and grafts; Z83.3 Family history of diabetes mellitus; E80.4 Gilbert syndrome; W57.XXXA Bitten or stung by nonvenomous insect and other nonvenomous arthropods, initial encounter; Y92.89 Other specified places as the place of occurrence of the external cause

== ENCOUNTER 2020-05-12 08:39 | Inpatient (IN) ==
[2020-05-12] MEDS ORDERED: SODIUM CHLORIDE 0.9% 1000ML 1,000 ML IV ONE (09:32)
[2020-05-12] MEDS ORDERED: PIPERACILLIN/TAZOBACTAM 4.5 GM/120 ML BAG IV ONE (09:32)
[2020-05-12] MEDS ORDERED: PROCHLORPERAZINE 1 ML IV ONE (09:32)
[2020-05-12] MEDS ORDERED: PIPERACILL/TAZOBAC CONSULT ACTIVE PRN (09:32)
[2020-05-12] MEDS ORDERED: FAMOTIDINE 20MG IV PUSH 20 MG/5 ML SYR IV STA (09:32)
--- NOTE | 2020-05-12 09:49 | XRay Report ---
XR chest 1V portable CLINICAL HISTORY: SEPSIS COMPARISON STUDY: No previous studies for comparison. FINDINGS: Lung volumes are at the lower limits of normal. Lungs are clear. There is no pneumothorax o r pleural effusion. Cardiac size is normal. Mediastinal contours are normal. There is no evidence for pulmonary edema. IMPRESSION: No acute cardiopulmonary findings. ACT 112: Negative or not required by law. Electronically signed by: Dano Ferguson M.D. 05/12/2020 9:48 AM
[2020-05-12 10:02] LABS: Albumin Level 3.7 gm/dl (3.4-5.0); BUN Creatinine Ratio 10.4 (10-20); Bilirubin Direct 0.6 mg/dl (0-0.2); Calcium 9.1 mg/dl (8.5-10.1); Creatinine Clr Calc Pharmacy 51.7 ml/min; Est GFR (African American) 73.1; Est GFR (Non-African American) 63.1; Magnesium 1.7 mg/dl (1.8-2.4); Potassium 3.8 mmol/L (3.5-5.1)
[2020-05-12 10:05] LABS: INR 1.1 (0.9-1.1); Partial Thromboplastin Ratio 0.9; Partial Thromboplastin Time 23.9 Seconds (21.0-31.0); Prothrombin Time 11.3 Seconds (9.0-12.0)
[2020-05-12 10:06] LABS: Albumin Globulin Ratio 1.2 (0.9-2); Bilirubin,Total 3.3 mg/dl (0.2-1); Globulin 3.2 gm/dl (2.5-4.0); Phosphorus 3.1 mg/dl (2.5-4.9); Total Protein 6.9 gm/dl (6.4-8.2); Troponin I 0.028 ng/ml (0-0.045)
[2020-05-12 10:20] LABS: Basophils # (auto) 0.01 K/uL (0-0.2); Basophils % (auto) 0.3 %; Eosinophils # (auto) 0.07 K/uL (0-0.5); Eosinophils % (auto) 1.8 %; Hematocrit (blood only) 47.9 % (42-52); Hemoglobin 16.7 g/dL (14.0-18.0); Immature Granulocytes # (auto) 0.01 K/uL (0.00-0.02); Immature Granulocytes % (auto) 0.3 %; Lymphocytes # (auto) 0.47 K/uL (1.2-3.4); Mean Corpuscular Hemoglobin 29.5 pg (25-34); Mean Corpuscular Hgb Conc 34.9 g/dL (32-36); Mean Corpuscular Volume 84.5 fL (80-100); Mean Platelet Volume 10.8 fL (7.4-10.4); Monocytes # (auto) 0.02 K/uL (0.11-0.59); Monocytes % (auto) 0.5 %; Neutrophils # (auto) 3.35 K/uL (1.4-6.5); Neutrophils % (auto) 85.1 %; Platelet Count 99 K/uL (130-400); Platelet Estimate Decreased (Normal); RDW Coefficient of Variation 13.3 % (11.5-14.5); RDW Standard Deviation 40.4 fL (36.4-46.3); Red Blood Count 5.67 M/uL (4.7-6.1); White Blood Count 3.93 K/uL (4.8-10.8)
[2020-05-12] MEDS ORDERED: IOVERSOL 100ml IV PRN (10:47)
--- NOTE | 2020-05-12 11:17 | CT Scan Report ---
CT OF THE ABDOMEN AND PELVIS WITH CONTRAST CLINICAL HISTORY: abd pain, fevers, h/o cholangitis COMPARISON STUDY: CT of the abdomen and pelvis June 06, 2015. MRCP January 23, 2018. TECHNIQUE: Following IV administration of 93 mL of Optiray-320, axial images of the abdomen and pelvi s were obtained from the lung bases to the proximal femurs. Images were reviewed in the axial, sagitt al, and coronal planes. IV contrast was administered without complication. Automated exposure contro l was utilized for the study. A dose lowering technique was utilized adhering to the principles of A LEE. CT DOSE: 598.66 mGycm FINDINGS: Lung bases are unremarkable. No pneumatosis, free air or portal venous gas is present. The gallbladder is surgically absent. There are postoperative findings suggestive of choledochojejunostom y. Mild biliary ductal dilatation has developed since CT of June 06, 2015. Possible intraluminal ma terial within the common hepatic or common bile duct is shown on axial image 111 of 456. There is no peripancreatic infiltration. A small cystic lesion within the pancreatic tail measuring 1.2 cm is not ed. This favors a small side branch IPMN. There is no pancreatic ductal dilatation. Note is made of a 2.1 cm wedge-shaped hypodensity within the inferior aspect of the spleen. The adrenal glands and lef t kidney are normal. There is no hydronephrosis. Postoperative findings from a ventral hernia repair with mesh are noted. There is no evidence for a bowel obstruction. The caliber and wall thickness of small and large bowel are normal. The appendix is normal. No lymphadenopathy is present. There is no ascites. There are no suspicious osseous lesions. Prostate is moderately enlarged. Fat-containing katie ateral inguinal hernias are noted. IMPRESSION: 1. Mild biliary ductal dilatation status post cholecystectomy and apparent choledochojejunostomy. Maia pected intraluminal material within the common hepatic or common bile duct which could reflect calcul i. MRCP could be obtained for further evaluation. 2. 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 3. No bowel obstruction. Normal appendix. ACT 112: Negative or not required by law. Electronically signed by: Dano Ferguson M.D. 05/12/2020 11:16 AM
--- NOTE | 2020-05-12 12:43 | Emergency Department Note ---
Impression & Plan Sepsis, Recurrent cholangitis, Hypomagnesemia, Elevated LFTs, Rigors ED Provider Note NAME: ANGELA FONG AGE: 79 SEX: M ARRIVES VIA: Walk-In INFORMANT: Patient, ED PROVIDER(S): Andrea Ornelas MD CHIEF COMPLAINT: Fevers, rigors PLAN: Disposition: Admit MEDICAL DECISION MAKING: The patient is a pleasant 79-year-old gentleman with a past medical history of diabetes, CAD, history of cholecystectomy and his report of recurrent cholangitis who presents emergency department with fevers, body aches, rigors/chills that began last night with associated pressure in his upper abdomen that he feels is typical for his recurrent cholangitis. He denies shortness of breath, diarrhea/constipation, urinary symptoms. He denies known contact with individuals diagnosed with Covid19. On arrival patient is in no acute distress, with temperature of 37.6 with HR 100s and vital signs otherwise stable. His abdomen is benign. However he reports he does not typically have pain with his cholangitis, rather it feels like a fullness. EKG without evidence of acute ischemia. CXR negative. WBC 3.9, nonspecific. H/H within normal limits. Platelets 99K similar to prior range of values. Chemistry without acidosis. Lactate 2.0. Magnesium 1.7 with repletion provided. Total bilirubin 3.3 similar to prior range of values. Direct bilirubin 0.6. AST and ALT slightly elevated at 79 and 84 respectively. Alk phos within normal limits. Troponin 0.028 within normal limits. Lipase is not elevated. Procalcitonin is wnl. CT abdomen pelvis demonstrates "mild biliary ductal dilatation with suspected intraluminal material within the common hepatic or CBD which could reflect calculi". Patient was reevaluated and he was feeling improved after IV fluid hydration, Compazine, Pepcid, and empiric Zosyn.. He continued to have no tende rness to palpation. He is agreeable with plan for admission. Case discussed with Shimon Andrade PA-C, who evaluate the patient for admission. Triage Nursing notes reviewed and agree them. Prior medical records reviewed Vital Signs: reviewed and remarkable for no significant abnormalities Differential diagnosis: Appendicitis, testicular torsion, infections, diverticulitis, UTI, obstruction, mesenteric ischemia, aortic pathology, inflammatory bowel disease, renal colic, PUD, pancreatitis, biliary pathology, hernia, volvulus, constipation, as well as other pathologies. ER treatment provided: See below. Diagnostics interpreted by me: ECG: Sinus tachycardia, 105 bpm, no ectopy, no overt ST elevation or depression. QTC 444, QRS 86 Cardiac Monitoring: An order for continuous cardiac monitoring was placed and demonstrated Sinus tachycardia, 105 bpm, no ectopy, Laboratory studies: See below Imaging studies: CT OF THE ABDOMEN AND PELVIS WITH CONTRAST CLINICAL HISTORY: abd pain, fevers, h/o cholangitis COMPARISON STUDY: CT of the abdomen and pelvis June 06, 2015. MRCP January 23, 2018. TECHNIQUE: Following IV administration of 93 mL of Optiray-320, axial images of the abdomen and pelvis were obtained from the lung bases to the proximal femurs. Images were reviewed in the axial, sagittal, and coronal planes. IV contrast was administered without complication. Automated exposure control was utilized for the study. A dose lowering technique was utilized adhering to the principles of ALARA. CT DOSE: 598.66 mGycm FINDINGS: Lung bases are unremarkable. No pneumatosis, free air or portal venous gas is present. The gallbladder is surgically absent. There are postoperative findings suggestive of choledochojejunostomy. Mild biliary ductal dilatation has developed since CT of June 06, 2015. Possible intraluminal material within the common hepatic or common bile duct is shown on axial image 111 of 456. There is no peripancreatic infiltration. A small cystic lesion within the pancreatic tail measuring 1.2 cm is noted. This favors a small side branch IPMN. There is no pancreatic ductal dilatation. Note is made of a 2.1 cm wedge-shaped hypodensity within the inferior aspect of the spleen. The adrenal glands and left kidney are normal. There is no hydronephrosis. Postoperative findings from a ventral hernia repair with mesh are noted. There is no evidence for a bowel obstruction. The caliber and wall thickness of small and large bowel are normal. The appendix is normal. No lymphadenopathy is present. There is no ascites. There are no suspicious osseous lesions. Prostate is moderately enlarged. Fat-containing bilateral inguinal hernias are noted. IMPRESSION: 1. Mild biliary ductal dilatation status post cholecystectomy and apparent choledochojejunostomy. Suspected intraluminal material within the common hepatic or common bile duct which could reflect calculi. MRCP could be obtained for further evaluation. 2. 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 3. No bowel obstruction. Normal appendix. Consultation(s): Case was discussed with Paola Richey [facility], who will evaluate the patient for admission. HPI: The patient is a pleasant 79-year-old gentleman with a past medical history of diabetes, CAD, history of cholecystectomy and his report of recurrent cholangitis who presents emergency department with fevers, body aches, rigors/chills that began last night with associated pressure in his upper abdomen that he feels is typical for his recurrent cholangitis. He denies shortness of breath, diarrhea/constipation, urinary symptoms. He denies known contact with individuals diagnosed with Covid19. ROS: See above HPI for pertinent positives & negatives. A total of 10 systems reviewed and were otherwise negative. PAST MEDICAL HISTORY:See Below PAST SURGICAL HISTORY:See Below FAMILY HISTORY:See Below SOCIAL HISTORY:See Below HOME MEDICATIONS:See Below ALLERGIES:See Below VITALS:See Below PHYSICAL EXAMINATION: GENERAL: Awake, alert, uncomfortable-appearing, in no distress HENT: Normocephalic, atraumatic. Oropharynx with dry mucous membranes and ot herwise unremarkable. EYES: Normal conjunctiva. Sclera non-icteric. NECK: Supple. No nuchal rigidity. FROM. No JVD. RESPIRATORY: Clear to auscultation. CARDIAC: Tachycardic rate, normal rhythm. 3/6 systolic murmur. Extremities warm and well perfused. Pulses equal. ABDOMEN: Soft, non-distended. No tenderness to palpation. No rebound or guarding. No masses. RECTAL: Deferred. MUSCULOSKELETAL: Chest examination reveals no tenderness. The back is symmetrical on inspection without obvious abnormality. There is no CVA tenderness to palpation. No joint edema. LOWER EXTREMITIES: Calves are equal size bilaterally and non-tender. No edema. No discoloration. NEURO: Normal sensorium. No sensory or motor deficits noted. SKIN: No rash or jaundice noted. ED COURSE: Critical Care: I have personally spent greater than 35 minutes of critical care time in the direct management of this patient. This includes bedside care, interpretation of diagnostic studies, and testing, discussion with consultants, patient, and family members, and other required patient management activities. This 35 minutes is in excess of all separately billable procedures. Andrea Ornelas MD Past Med/Surg History Medical History Aortic stenosis CAD (coronary artery disease) Carotid stenosis (Inactive) DM2 (diabetes mellitus, type 2) (Chronic) Glaucoma (Chronic) HLD (hyperlipidemia) (Chronic) HTN (hypertension) (Chronic) NSTEMI (non-ST elevation myocardial infarction) Surgical History H/O carotid endarterectomy (Inactive) H/O hernia repair (Inactive) History of cataract surgery (Inactive) History of cholecystectomy (Inactive) S/P cholecystectomy (Inactive) Family History Father Cancer throat Mother Diabetes Myocardial infarction Social History Preferred Language: Divehi Communication Ability: Effective 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 Beliefs That Will Affect Care: None marital status: Current Living Situation: Spouse current occupational status: retired Feels Safe at Home: Yes Smoking Status: Never smoker Hx Alcohol Use: Yes Alcohol type: beer Hx Substance Use: No Allergies Allergies Allergy/AdvReac Type Severity Reaction Status Date / Time Bactrim Allergy Mild HIVES Verified 05/12/20 09:48 Home Meds Home Medications Medication Instructions Recorded Confirmed aspirin [Aspirin Low Dose] 81 mg PO DAILY 05/12/20 05/12/20 atorvastatin [Lipitor] 40 mg PO DAILY 05/12/20 05/12/20 benazepril-hydrochlorothiazide 1 tab PO DAILY 05/12/20 05/12/20 dorzolamide-timolol (PF) [Cosopt 1 drp OPR BID 05/12/20 05/12/20 (PF)] glipizide 10 mg PO DAILY 05/12/20 05/12/20 latanoprost [Xalatan] 1 drp OPR PM 05/12/20 05/12/20 metformin 500 mg PO BID 05/12/20 05/12/20 metoprolol succinate [Toprol XL] 12.5 mg PO DAILY 05/12/20 05/12/20 multivitamin [Multiple Vitamins] 1 tab PO DAILY 05/12/20 05/12/20 nitroglycerin [Nitrostat] 0.4 mg SUBLINGUAL UD PRN 05/12/20 05/12/20 ursodiol 300 mg PO TID 05/12/20 05/12/20 Results & Data (ED) Vital Signs Vital Signs - 24 hr 05/12/20 08:43 05/12/20 10:16 05/12/20 10:29 Temperature 37.6 C H Temperature Source Oral Pulse Rate 104 H Pulse Rate [Left] 78 Pulse Rhythm [Left] Regular Pulse Strength [Left] Normal Respiratory Rate 20 18 Respiratory Effort / Characteristics Non-Labored Non-Labored Spontaneous Respiratory Depth Normal Normal Respiratory Pattern Regular Blood Pressure 146/89 H Blood Pressure [Left Arm] 173/90 H Blood Pressure Mean 108 Blood Pressure Mean [Left Arm] 117 Blood Pressure Position [Left Arm] Lying Pulse Oximetry 95 98 93 Oxygen Delivery Method Room Air Room Air Room Air Sepsis Recent Fever Within 48 Hours No Sepsis New/Unexplained Change in Mental Status N/A Sepsis Action Taken by Nursing No Action Required 05/12/20 13:00 Temperature Temperature Source Pulse Rate Pulse Rate [Left] 76 Pulse Rhythm [Left] Regular Pulse Strength [Left] Normal Respiratory Rate 18 Respiratory Effort / Characteristics Non-Labored Spontaneous Respiratory Depth Normal Respiratory Pattern Regular Blood Pressure Blood Pressure [Left Arm] 146/90 H Blood Pressure Mean Blood Pressure Mean [Left Arm] 108 Blood Pressure Position [Left Arm] Lying Pulse Oximetry 94 Oxygen Delivery Method Room Air Sepsis Recent Fever Within 48 Hours Sepsis New/Unexplained Change in Mental Status Sepsis Action Taken by Nursing Laboratory Data Attestation: I reviewed the patient's lab results. Result diagrams: 05/12/20 09:10 05/12/20 09:10 Lab Results 05/12/20 05/12/20 05/12/20 Range/Units 09:10 09:10 09:10 WBC 3.93 L (4.8-10.8) K/uL RBC 5.67 (4.7-6.1) M/uL Hgb 16.7 (14.0-18.0) g/dL Hct 47.9 (42-52) % MCV 84.5 (80-100) fL MCH 29.5 (25-34) pg MCHC 34.9 (32-36) g/dL RDW Std Deviation 40.4 (36.4-46.3) fL RDW Coeff of Aletha 13.3 (11.5-14.5) % Plt Count 99 L (130-400) K/uL MPV 10.8 H (7.4-10.4) fL Immature Gran % (Auto) 0.3 % Neut % (Auto) 85.1 % Lymph % (Auto) 12.0 % [place] % (Auto) 0.5 % Eos % (Auto) 1.8 % Baso % (Auto) 0.3 % Neut # (Auto) 3.35 (1.4-6.5) K/uL Lymph # (Auto) 0.47 L (1.2-3.4) K/uL [place] # (Auto) 0.02 L (0.11-0.59) K/uL Eos # (Auto) 0.07 (0-0.5) K/uL Baso # (Auto) 0.01 (0-0.2) K/uL Immature Gran # (Auto) 0.01 (0.00-0.02) K/uL Platelet Estimate Decreased L (Normal) Peripher Smr Path Cons PT 11.3 (9.0-12.0) Seconds INR 1.1 (0.9-1.1) APTT 23.9 (21.0-31.0) Seconds PTT Ratio 0.9 Sodium (136-145) mmol/L Potassium (3.5-5.1) mmol/L Chloride (98-107) mmol/L Carbon Dioxide (21-32) mmol/L Anion Gap (3-11) BUN (7-18) mg/dl Creatinine (0.6-1.4) mg/dl Est Cr Clr Drug Dosing ml/min Est GFR ( Amer) Est GFR (Non-Af Amer) BUN/Creatinine Ratio (10-20) Glucose (70-99) mg/dl Lactate (0.4-2.0) mmol/L Calcium (8.5-10.1) mg/dl Phosphorus (2.5-4.9) mg/dl Magnesium (1.8-2.4) mg/dl Total Bilirubin (0.2-1) mg/dl Direct Bilirubin (0-0.2) mg/dl AST (15-37) U/L ALT (12-78) U/L Alkaline Phosphatase (45-117) U/L Troponin I (0-0.045) ng/ml Total Protein (6.4-8.2) gm/dl Albumin (3.4-5.0) gm/dl Globulin (2.5-4.0) gm/dl Albumin/Globulin Ratio (0.9-2) Lipase (73-393) U/L Procalcitonin 0.09 (0-0.5) ng/ml Lyme Disease IgG Ab (Negative) Lyme Disease IgM Ab (Negative) 05/12/20 05/12/20 05/12/20 Range/Units 09:10 09:10 09:10 WBC (4.8-10.8) K/uL RBC (4.7-6.1) M/uL Hgb (14.0-18.0) g/dL Hct (42-52) % MCV (80-100) fL MCH (25-34) pg MCHC (32-36) g/dL RDW Std Deviation (36.4-46.3) fL RDW Coeff of Aletha (11.5-14.5) % Plt Count (130-400) K/uL MPV (7.4-10.4) fL Immature Gran % (Auto) % Neut % (Auto) % Lymph % (Auto) % [place] % (Auto) % Eos % (Auto) % Baso % (Auto) % Neut # (Auto) (1.4-6.5) K/uL Lymph # (Auto) (1.2-3.4) K/uL [place] # (Auto) (0.11-0.59) K/uL Eos # (Auto) (0-0.5) K/uL Baso # (Auto) (0-0.2) K/uL Immature Gran # (Auto) (0.00-0.02) K/uL Platelet Estimate (Normal) Peripher Smr Path Cons Cancelled PT (9.0-12.0) Seconds INR (0.9-1.1) APTT (21.0-31.0) Seconds PTT Ratio Sodium 143 (136-145) mmol/L Potassium 3.8 (3.5-5.1) mmol/L Chloride 107 (98-107) mmol/L Carbon Dioxide 26 (21-32) mmol/L Anion Gap 10.0 (3-11) BUN 11 (7-18) mg/dl Creatinine 1.10 (0.6-1.4) mg/dl Est Cr Clr Drug Dosing 51.7 ml/min Est GFR ( Amer) 73.1 Est GFR (Non-Af Amer) 63.1 BUN/Creatinine Ratio 10.4 (10-20) Glucose 194 H (70-99) mg/dl Lactate (0.4-2.0) mmol/L Calcium 9.1 (8.5-10.1) mg/dl Phosphorus 3.1 (2.5-4.9) mg/dl Magnesium 1.7 L (1.8-2.4) mg/dl Total Bilirubin 3.3 H (0.2-1) mg/dl Direct Bilirubin 0.6 H (0-0.2) mg/dl AST 79 H (15-37) U/L ALT 84 H (12-78) U/L Alkaline Phosphatase 82 (45-117) U/L Troponin I 0.028 (0-0.045) ng/ml Total Protein 6.9 (6.4-8.2) gm/dl Albumin 3.7 (3.4-5.0) gm/dl Globulin 3.2 (2.5-4.0) gm/dl Albumin/Globulin Ratio 1.2 (0.9-2) Lipase 165 (73-393) U/L Procalcitonin (0-0.5) ng/ml Lyme Disease IgG Ab Negative (Negative) Lyme Disease IgM Ab Negative (Negative) 05/12/20 Range/Units 10:05 WBC (4.8-10.8) K/uL RBC (4.7-6.1) M/uL Hgb (14.0-18.0) g/dL Hct (42-52) % MCV (80-100) fL MCH (25-34) pg MCHC (32-36) g/dL RDW Std Deviation (36.4-46.3) fL RDW Coeff of Aletha (11.5-14.5) % Plt Count (130-400) K/uL MPV (7.4-10.4) fL Immature Gran % (Auto) % Neut % (Auto) % Lymph % (Auto) % [place] % (Auto) % Eos % (Auto) % Baso % (Auto) % Neut # (Auto) (1.4-6.5) K/uL Lymph # (Auto) (1.2-3.4) K/uL [place] # (Auto) (0.11-0.59) K/uL Eos # (Auto) (0-0.5) K/uL Baso # (Auto) (0-0.2) K/uL Immature Gran # (Auto) (0.00-0.02) K/uL Platelet Estimate (Normal) Peripher Smr Path Cons PT (9.0-12.0) Seconds INR (0.9-1.1) APTT (21.0-31.0) Seconds PTT Ratio Sodium (136-145) mmol/L Potassium (3.5-5.1) mmol/L Chloride (98-107) mmol/L Carbon Dioxide (21-32) mmol/L Anion Gap (3-11) BUN (7-18) mg/dl Creatinine (0.6-1.4) mg/dl Est Cr Clr Drug Dosing ml/min Est GFR ( Amer) Est GFR (Non-Af Amer) BUN/Creatinine Ratio (10-20) Glucose (70-99) mg/dl Lactate 2.0 (0.4-2.0) mmol/L Calcium (8.5-10.1) mg/dl Phosphorus (2.5-4.9) mg/dl Magnesium (1.8-2.4) mg/dl Total Bilirubin (0.2-1) mg/dl Direct Bilirubin (0-0.2) mg/dl AST (15-37) U/L ALT (12-78) U/L Alkaline Phosphatase (45-117) U/L Troponin I (0-0.045) ng/ml Total Protein (6.4-8.2) gm/dl Albumin (3.4-5.0) gm/dl Globulin (2.5-4.0) gm/dl Albumin/Globulin Ratio (0.9-2) Lipase (73-393) U/L Procalcitonin (0-0.5) ng/ml Lyme Disease IgG Ab (Negative) Lyme Disease IgM Ab (Negative) Administered Medications Discontinued Medications Sodium Chloride (Nss 1000ml) 1,000 mls @ 999 mls/hr IV .Q1H1M ONE Stop: 05/12/20 10:32 Last Infusion: 05/12/20 11:06 Dose: 0 mls/hr Documented by: [id number] Admin: 05/12/20 09:36 Dose: 999 mls/hr Documented by: [id number] Piperacillin Sod/Tazobactam Sod (Zosyn) 4.5 gm in 120 mls @ 240 mls/hr IV NOW ONE Stop: 05/12/20 10:01 Last Infusion: 05/12/20 11:06 Dose: 0 mls/hr Documented by: [id number] Admin: 05/12/20 10:31 Dose: 240 mls/hr Documented by: [id number] Prochlorperazine (Compazine) 1 mls @ 1 mls/min IV ONE ONE Stop: 05/12/20 09:33 Last Admin: 05/12/20 10:31 Dose: 1 mls/min Documented by: [id number] Famotidine (Pepcid 20mg Iv Push) 20 mg in 5 mls @ 2.5 mls/min IV NOW STA Stop: 05/12/20 09:33 Last Admin: 05/12/20 10:31 Dose: 2.5 mls/min Documented by: [id number] Magnesium Sulfate/Dextrose (Magnesium Sulfate / D5w) 1 gm in 100 mls @ 100 mls/hr IV NOW STA Stop: 05/12/20 14:20 Last Infusion: 05/12/20 15:43 Dose: 0 mls/hr Documented by: [id number] Admin: 05/12/20 14:21 Dose: 100 mls/hr Documented by: [id number] Sodium Chloride (Nss 1000ml) 1,000 mls @ 100 mls/hr IV .Q10H YONI Stop: 06/11/20 16:44 Last Admin: 05/12/20 17:25 Dose: 100 mls/hr Documented by: [id number] Piperacillin Sod/Tazobactam (Sod 3.375 gm/ Dextrose) 115 mls @ 28.75 mls/hr IV Q8H YONI; Protocol Stop: 05/22/20 16:59 Last Admin: 05/12/20 17:26 Dose: 28.8 mls/hr Documented by: [id number] Insulin Aspart (Novolog Flexpen) 0 units SC ACHS YONI Stop: 06/11/20 16:36 Last Admin: 05/12/20 17:32 Dose: 2 units Documented by: [id number] Cosigned by: [id number] Ioversol (Optiray 320 100ml) 93 ml IV ONCE PRN PRN Reason: Interaction Checking Stop: 05/16/20 10:46 Last Admin: 05/12/20 10:47 Dose: 93 ml Documented by: [id number] Ursodiol (Actigall) 300 mg PO TID YONI Stop: 06/11/20 16:59 Last Admin: 05/12/20 17:29 Dose: 300 mg Documented by: [id number] Blood Pressure Blood Pressure Findings: Elevated blood pressure Blood Pressure Disposition: further management by hospitalist Discharge Plan Visit Data *Final* Discharge Date/Time: 05/12/20 16:01 Chief Complaint: Fever Stated Complaint: FEVER, VOUMITING ED Provider: Andrea Ornelas Discharge Problem: Sepsis, Recurrent cholangitis, Hypomagnesemia, Elevated LFTs, Rigors Patient Disposition: Admitted As Inpatient Discharge Instructions Interventions: ED Discharge Assessment Last Done: 05/12/20 16:01 Discharge Problem: Sepsis Qualifiers: Sepsis type: sepsis due to unspecified organism Sepsis acute organ dysfunction status: unspecified Qualified Code(s): A41.9 - Sepsis, unspecified organism
[2020-05-12] MEDS ORDERED: MAGNESIUM SULFATE / D5W 1 GM/100 ML BAG IV STA (13:21)
--- NOTE | 2020-05-12 14:03 | History & Physical Report ---
Date of Service May 12, 2020 Assessment & Plan (1) Sepsis: (2) Recurrent cholangitis: This is an 79-year-old male who has significant past medical history of CAD with history of JANELL x1 in 2016, T2DM, HTN, HLD, AVS, carotid artery stenosis status post right CEA 2007, POAG, history of recurrent cholangitis status post Bear-en-Y who presents to ED secondary to nausea, abdominal pain, fever and rigors starting at 5 AM In ED patient was tachycardic and febrile and therefore met SIRS criteria. His lactic acid was 2.0. His white blood cell count was low at 3.93k, H&H stable at 16.7 and 47.9, platelet 99, BUN 11, creatinine 1.10, glucose 194, mag 1.7, total bilirubin 3.3, direct bili 1.6, AST 79, ALT 84, lipase WNL. Chest x-ray was negative for acute abnormality. CT scan abdomen pelvis revealed small age-indeterminate splenic infarct 2.1 cm along with Mild biliary ductal dilatation status post cholecystectomy and apparent choledochojejunostomy. Suspected intraluminal material within the common hepatic or common bile duct which could reflect calculi. MRCP is recommended. He received IV Zosyn, IV fluid, magnesium supplementation and Compazine while in ED. Since arrival to ED his abdominal pain has subsided. Per CMS guidelines pt meets SEPSIS criteria likely in setting of acute cholanginits with similar presentation in past. During my evaluation he was tachycardic, febrile and wbc < 4k Broad spectrum IV antibiotic administered. admit to PCU Continue IV Zosyn Obtain MRCP -according to at bedside any further procedure needs to be obtained they would prefer transfer to tertiary center in [place] Consult gastroenterology -appreciate their input Continue IVF resuscitation 100 cc/h Antiemetics N.p.o. except sips and chips (3) Splenic infarct: CT scan abdomen pelvis reveals concern for age-indeterminate small splenic infarct 2.1 cm GI consulted, appreciate their input (4) Elevated LFTs: AST 79, ALT 84, direct bilirubin 0.6, total bilirubin 3.3 Previous bilirubin levels have been elevated Hold statins and avoid hepatotoxic agents GI consulted As above (5) Hypomagnesemia: Order magnesium replacement while in ED Repeat mag in a.m. (6) DM2 (diabetes mellitus, type 2): Last A1c 7.3 on 05/09/2020 Hold metformin and glipizide NovoLog sliding scale per protocol (7) CAD (coronary artery disease): No chest pain or shortness of breath EKG of a sinus tachycardia but no ST or T wave abnormalities History of JANELL to diagonal 06/2016 On ASA, statin, metoprolol and benazepril as outpatient Hold statin in setting of elevated LFTs and hold benazepril in setting of concern for sepsis (8) HTN (hypertension): Blood pressure currently stable Hold benazepril/HCTZ PRN Vasotec SBP greater than 180 (9) Thrombocytopenia: Platelet count 126 on 05/09/2020 and prior to that on 11/07/2019 was 149 Today 99 and trends on lower side in our system He denies prior history He also has low white count Obtain peripheral smear, check Anaplasma and Lyme Would recommend further work-up as outpatient with hematology referral (10) Aortic stenosis: Last echocardiogram 04/18/2019 revealed moderate aortic valve stenosis LVEF 60 to 64%, mild concentric LVH, proximal ascending thoracic aorta mildly enlarged at 4 cm, grade 1 diastolic dysfunction Currently euvolemic Monitor closely given IV fluid resuscitation (11) HLD (hyperlipidemia): statin on hold (12) Glaucoma: Continue Cosopt and latanoprost (13) DVT prophylaxis: SCD/teds in setting of low platelets Disposition: Admit to telemetry Follow-up: PCP Dr. Smyth upon discharge Patient was seen and examined in collaboration with Dr. Villatoro please see addendum History of Present Illness Chief Complaint: Fever, rigors, nausea and abdominal discomfort since 5 AM this morning. Primary Care Provider: Delroy Smyth MD This is an 79-year-old male who has significant past medical history of CAD with history of JANELL x1 in 2016, T2DM, HTN, HLD, AVS, carotid artery stenosis status post right CEA 2007, POAG, history of recurrent cholangitis status post Bear-en-Y who presents to ED secondary to nausea, abdominal pain, fever and rigors starting at 5 AM. Of significance patient has several recurrent episodes of acute cholangitis due to history of complicated cholecystectomy several years prior status post Bear-en-Y for reconstruction done at [facility]. His current symptoms feel similar to prior episodes. He states he typically requires hospitalization, IV antibiotics and symptoms resolved. At approximately 5 AM he woke up this morning was feverish, chills, rigors, frontal headache, photophobia, nausea, dry heaves and epigastric abdominal pain. Pain rated approximately 5 out of 10, nothing made better or worse and he was unable to tolerate oral intake this morning. He did not take any of his morning meds. His last BM was this morning and was normal for him, he denies any diarrhea melena or hematochezia. He further denies any sick contacts or known exposure to COVID-19. He has been quarantining since December. He denies any lightheadedness, dizziness, syncope, chest pain, shortness of breath, cough, hematemesis or hemoptysis. His is at bedside. He admits to taking ursodiol for biliary stones. He follows with GI Dr. Barrera. In ED patient was tachycardic and febrile and therefore met SIRS criteria. His lactic acid was 2.0. His white blood cell count was low at 3.93k, H&H stable at 16.7 and 47.9, platelet 99, BUN 11, creatinine 1.10, glucose 194, mag 1.7, total bilirubin 3.3, direct bili 1.6, AST 79, ALT 84, lipase WNL. Chest x-ray was negative for acute abnormality. CT scan abdomen pelvis revealed small age-indeterminate splenic infarct 2.1 cm along with Mild biliary ductal dilatation status post cholecystectomy and apparent choledochojejunostomy. Suspected intraluminal material within the common hepatic or common bile duct which could reflect calculi. MRCP is recommended. He received IV Zosyn, IV fluid, magnesium supplementation and Compazine while in ED. Since arrival to ED his abdominal pain has subsided. Allergies Allergy/AdvReac Type Severity Reaction Status Date / Time Bactrim Allergy Mild HIVES Verified 05/12/20 09:48 Home Medications Home Medications Medication Instructions Recorded Confirmed Type aspirin [Aspirin Low Dose] 81 mg PO DAILY 05/12/20 05/12/20 History atorvastatin [Lipitor] 40 mg PO DAILY 05/12/20 05/12/20 History benazepril-hydrochlorothiazide 1 tab PO DAILY 05/12/20 05/12/20 History dorzolamide-timolol (PF) [Cosopt 1 drp OPR BID 05/12/20 05/12/20 History (PF)] glipizide 10 mg PO DAILY 05/12/20 05/12/20 History latanoprost [Xalatan] 1 drp OPR PM 05/12/20 05/12/20 History metformin 500 mg PO BID 05/12/20 05/12/20 History metoprolol succinate [Toprol XL] 12.5 mg PO DAILY 05/12/20 05/12/20 History multivitamin [Multiple Vitamins] 1 tab PO DAILY 05/12/20 05/12/20 History nitroglycerin [Nitrostat] 0.4 mg SUBLINGUAL UD PRN 05/12/20 05/12/20 History ursodiol 300 mg PO TID 05/12/20 05/12/20 History Past Med/Surg History Medical History Aortic stenosis CAD (coronary artery disease) Carotid stenosis (Inactive) DM2 (diabetes mellitus, type 2) (Chronic) Glaucoma (Chronic) HLD (hyperlipidemia) (Chronic) HTN (hypertension) (Chronic) NSTEMI (non-ST elevation myocardial infarction) Surgical History H/O carotid endarterectomy (Inactive) H/O hernia repair (Inactive) History of cataract surgery (Inactive) History of cholecystectomy (Inactive) S/P cholecystectomy (Inactive) Family History Father Cancer throat Mother Diabetes Myocardial infarction Social History Preferred Language: Citizen Of [place] Communication Ability: Effective Overhead Cleaner Required: No Beliefs That Will Affect Care: None marital status: Current Living Situation: Spouse current occupational status: retired Feels Safe at Home: Yes Smoking Status: Never smoker Hx Alcohol Use: Yes Alcohol type: beer Hx Substance Use: No Review of Systems Review of Systems: All systems reviewed & are unremarkable except as noted in HPI & below Physical Exam Physical Exam: Constitutional: WD/WN, M, vitals as above, NAD, sitting up in bed, pleasant, conversing easily Head: Normocephalic, Atraumatic Eyes: PERRL, conjunctivae normal, anicteric sclerae ENMT: external ear and nose normal, oropharynx normal Neck: trachea midline, no thyromegaly normal visual inspection Respiratory: normal respiratory effort, lungs clear to auscultation, no wheeze, rales, rhonchi. Normal insp/exp effort, no accessory muscle use Cardiovascular: Tachycardic rate, regular rhythm, harsh 2/6 DA heard throughout precordium, no edema Vessels: no JVD or carotid bruit Chest: normal inspection of chest Abdomen: normal bowel sounds, soft, nontender, no hepatosplenomegaly Musculoskeletal: no cyanosis or clubbing, extremities motor strength 5/5 Skin: no rashes, warm and dry normal turgor Neurologic: PERRL, EOMI, accommodation nl, no face palsy, no dysarthria CN's II-XI intact bilaterally and moves all extremities Psychiatric: A+Ox3, euthymic affect Lymphatic: no cervical or axillary lymphadenopathy : deferred Results & Data Results & Data ([facility]) Vital Signs (Past 12 Hours) Vital Signs Temp Pulse Pulse Resp BP BP Pulse Ox 05/12/20 13:00 76 18 146/90 H 94 05/12/20 10:29 93 05/12/20 10:16 78 18 173/90 H 98 05/12/20 08:43 37.6 C H 104 H 20 146/89 H 95 Laboratory Results Short CBC 05/12/20 05/12/20 Range/Units 09:10 09:10 WBC 3.93 L (4.8-10.8) K/uL Hgb 16.7 (14.0-18.0) g/dL Hct 47.9 (42-52) % Plt Count 99 L (130-400) K/uL Total Bilirubin 3.3 H (0.2-1) mg/dl Direct Bilirubin 0.6 H (0-0.2) mg/dl AST 79 H (15-37) U/L ALT 84 H (12-78) U/L BMP 05/12/20 09:10 Sodium 143 Potassium 3.8 Chloride 107 Carbon Dioxide 26 BUN 11 Creatinine 1.10 Glucose 194 H Calcium 9.1 Cardiac Enzymes 05/12/20 Range/Units 09:10 Troponin I 0.028 (0-0.045) ng/ml Liver Function 05/12/20 Range/Units 09:10 Total Bilirubin 3.3 H (0.2-1) mg/dl Direct Bilirubin 0.6 H (0-0.2) mg/dl AST 79 H (15-37) U/L ALT 84 H (12-78) U/L Alkaline Phosphatase 82 (45-117) U/L Albumin 3.7 (3.4-5.0) gm/dl Diagnostic Findings CT abd/pelvis: IMPRESSION: 1. Mild biliary ductal dilatation status post cholecystectomy and apparent choledochojejunostomy. Suspected intraluminal material within the common hepatic or common bile duct which could reflect calculi. MRCP could be obtained for further evaluation. 2. 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 3. No bowel obstruction. Normal appendix. CXR: IMPRESSION: No acute cardiopulmonary findings. Medications Administered Ioversol (Optiray 320 100ml) 93 ml IV ONCE PRN PRN Reason: Interaction Checking Stop: 05/16/20 10:46 Last Admin: 05/12/20 10:47 Dose: 93 ml Documented by: [id number] Discontinued Medications Sodium Chloride (Nss 1000ml) 1,000 mls @ 999 mls/hr IV .Q1H1M ONE Stop: 05/12/20 10:32 Last Infusion: 05/12/20 11:06 Dose: 0 mls/hr Documented by: [id number] Admin: 05/12/20 09:36 Dose: 999 mls/hr Documented by: [id number] Piperacillin Sod/Tazobactam Sod (Zosyn) 4.5 gm in 120 mls @ 240 mls/hr IV NOW ONE Stop: 05/12/20 10:01 Last Infusion: 05/12/20 11:06 Dose: 0 mls/hr Documented by: [id number] Admin: 05/12/20 10:31 Dose: 240 mls/hr Documented by: [id number] Prochlorperazine (Compazine) 1 mls @ 1 mls/min IV ONE ONE Stop: 05/12/20 09:33 Last Admin: 05/12/20 10:31 Dose: 1 mls/min Documented by: [id number] Famotidine (Pepcid 20mg Iv Push) 20 mg in 5 mls @ 2.5 mls/min IV NOW STA Stop: 05/12/20 09:33 Last Admin: 05/12/20 10:31 Dose: 2.5 mls/min Documented by: [id number] ECG Rate (beats per minute): 105 Rhythm: sinus tachycardia Code Status & VTE Plan Code Status full code VTE Prophylaxis Plan VTE Prophylaxis will be ordered: Yes Supervising Physician Co-Signing Physician Notes Patient is an 79-year-old male with history of recurrent cholangitis S/P hepaticojejunostomy/choledochojejunostomy with Bear en Y from bile duct injury and other medical problems presents with history of nausea, abdominal pain, fever and Rigors since this morning. His abdominal pain is predominantly epigastric,5/10 intensity and he feels the symptoms are similar to his prior cholangitis episodes. CT abdomen, MRCP consistent with intraluminal calculi with mild dilatation of the common bile duct proximal to the anastomosis. He was noted to have hyperbilirubinemia, transaminitis, hypomagnesemia, leukopenia. On exam patient is moderately built and nourished, no apparent distress, normocephalic atraumatic, lungs are clear to auscultation, S1-S2, +murmur, no pedal edema, abdomen soft, nontender, no rebound, guarding or rigidity, normal bowel sounds, grossly no focal neurologic deficits,+ icterus. Patient is initially admitted for management of acute cholangitis. He started on Zosyn, IV fluids and kept n.p.o. Appreciate gastroenterology input. Patient has complicated anatomy, Bear en Y choledochojejuonostomy, it would be difficult for stone removal using standard ERCP and would likely need a balloon to reach or axios stent between both limbs Vs PTC. Discussed with [facility] [place] gastroenterology Dr.Tossapol Duffy who kindly accepted the patient for further evaluation and management. Also discussed with Dr. Navarro Mak who would be helping with coordinating with transfer. Patient is made aware of his condition and he agrees to be transferred as well. I personally reviewed the record. Patient is interviewed and examined at bedside. Patient's care is coordinated with Zulema Connolly PA-C. Please refer to the documentation above for details of patient's presentation and for discussion of other issues.
--- NOTE | 2020-05-12 14:26 | Gastrointestinal Consultation ---
Date of Consultation May 12, 2020 Assessment & Plan (1) Elevated LFTs: (2) Cholangitis: (3) Abdominal pain: likely recurrent cholangitis, abdominal pains with fevers and suspected CHD/CBD stones, tbili 3.3. he has a complicated anatomy due to his Bear en Y choledochojejuonostomy. We discussed ERCP for treatment. Also discussed MRCP. Recs: 1. continue abx zosyn 2. obtain blood cultures 3. obtain MRCP 4.NPO post midnight 5.tentatively plan for ERCP tomorrow morning with Dr. Mccullough, patient will let us know if they decide to cancel/not go forward with it Thank you for allowing me to participate in the care of this patient. History of Present Illness History of Present Illness 79 yo male here with abdominal pain and n/v, GI consulted for cholangitis. He has a long complicated history of biliary disease starting with CCY in 2005 and hepaticojejunostomy/choledochojejunostomy with Bear en Y from bile duct injury, with subsequent episodes of cholangitis requiring PTC multiple times from 2006- 2007. Never had ERCP since his surgery in 2005 where he had a preop ERCP. He reports having 18 episodes of cholangitis that appear to have been medically managed since then, is on perry TID as an outpatient, sees Dr. cabral. Last episode of cholangitis in 2018. Last night he reported epigastric abdominal pains that got up to an 8/10, with n/v and chills/rigors. He is febrile here in the ER, WBC is low and CT A/P shows suspected calculi/sludge in CBD/CHD. labs reviewed. Allergies Allergy/AdvReac Type Severity Reaction Status Date / Time Bactrim Allergy Mild HIVES Verified 05/12/20 09:48 Home Medications Home Medications Medication Instructions Recorded Confirmed Type aspirin [Aspirin Low Dose] 81 mg PO DAILY 05/12/20 05/12/20 History atorvastatin [Lipitor] 40 mg PO DAILY 05/12/20 05/12/20 History benazepril-hydrochlorothiazide 1 tab PO DAILY 05/12/20 05/12/20 History dorzolamide-timolol (PF) [Cosopt 1 drp OPR BID 05/12/20 05/12/20 History (PF)] glipizide 10 mg PO DAILY 05/12/20 05/12/20 History latanoprost [Xalatan] 1 drp OPR PM 05/12/20 05/12/20 History metformin 500 mg PO BID 05/12/20 05/12/20 History metoprolol succinate [Toprol XL] 12.5 mg PO DAILY 05/12/20 05/12/20 History multivitamin [Multiple Vitamins] 1 tab PO DAILY 05/12/20 05/12/20 History nitroglycerin [Nitrostat] 0.4 mg SUBLINGUAL UD PRN 05/12/20 05/12/20 History ursodiol 300 mg PO TID 05/12/20 05/12/20 History Patient History Medical History Aortic stenosis CAD (coronary artery disease) Carotid stenosis (Inactive) DM2 (diabetes mellitus, type 2) (Chronic) Glaucoma (Chronic) HLD (hyperlipidemia) (Chronic) HTN (hypertension) (Chronic) NSTEMI (non-ST elevation myocardial infarction) Surgical History H/O carotid endarterectomy (Inactive) H/O hernia repair (Inactive) History of cataract surgery (Inactive) History of cholecystectomy (Inactive) S/P cholecystectomy (Inactive) Family History Father Cancer throat Mother Diabetes Myocardial infarction Social History Preferred Language: Greek Communication Ability: Effective marital status: Current Living Situation: Spouse current occupational status: retired Feels Safe at Home: Yes Smoking Status: Never smoker Hx Alcohol Use: No Hx Substance Use: No Review of Systems Constitutional: no fever, no chills and no weight loss Eyes: as per Subjective / HPI Ear, Nose, Mouth, Throat: as per Subjective / HPI Respiratory: no dyspnea and no dyspnea on exertion Cardiovascular: no chest pain and no palpitations Gastrointestinal: as per Subjective / HPI Musculoskeletal: no joint pain and no swelling Integumentary: no rash and no lesions Neurologic: no numbness and no paresthesia Psychiatric: no depression and no anxiety Endocrine: no fatigue Hematologic / Lymphatic: no easy bleeding and no easy bruising Physical Exam Constitutional: WD/WN, vitals as above Eyes: EOM intact bilaterally Neck: normal visual inspection Respiratory: normal respiratory effort, lungs clear to auscultation Cardiovascular: RRR, no murmur, no edema Gastrointestinal (Abdomen): Inspection/Auscultation: abdomen normal to inspection; abdomen not distended Percussion/Palpation: abdomen soft; abdomen nontender and no hepatosplenomegaly Musculoskeletal: Extremities: no cyanosis Gait: normal gait Skin: no rashes, warm and dry Neurologic: moves all extremities Psychiatric: A+Ox3, euthymic affect Results & Data ([facility]) Vital Signs (Past 12 Hours) Vital Signs Temp Pulse Pulse Resp BP BP Pulse Ox 05/12/20 13:00 76 18 146/90 H 94 05/12/20 10:29 93 05/12/20 10:16 78 18 173/90 H 98 05/12/20 08:43 37.6 C H 104 H 20 146/89 H 95 PG Care Time/CCT Total # of Minutes Spent Total Time Spent with Patient: Total time spent is greater than 50% in coordination of care (as documented) at patient's floor/unit and/or counseling patient: Coding Level of Care Code 15854 Initial Inpt Care Lvl 3 Diagnoses Elevated LFTs R79.89 Cholangitis K83.09 Abdominal pain R10.9
--- NOTE | 2020-05-12 14:33 | Anesthesiology Consultation ---
Date of Service May 12, 2020 History Height/Weight Height: 5 ft 5 in Weight: 78.3 kg Allergies Allergy/AdvReac Type Severity Reaction Status Date / Time Bactrim Allergy Mild HIVES Verified 05/12/20 09:48 Medications Home Medications Medication Instructions Recorded Confirmed Last Taken aspirin [Aspirin Low Dose] 81 mg PO DAILY 05/12/20 05/12/20 Unknown atorvastatin [Lipitor] 40 mg PO DAILY 05/12/20 05/12/20 Unknown benazepril-hydrochlorothiazide 1 tab PO DAILY 05/12/20 05/12/20 Unknown dorzolamide-timolol (PF) [Cosopt 1 drp OPR BID 05/12/20 05/12/20 Unknown (PF)] glipizide 10 mg PO DAILY 05/12/20 05/12/20 Unknown latanoprost [Xalatan] 1 drp OPR PM 05/12/20 05/12/20 Unknown metformin 500 mg PO BID 05/12/20 05/12/20 Unknown metoprolol succinate [Toprol XL] 12.5 mg PO DAILY 05/12/20 05/12/20 Unknown multivitamin [Multiple Vitamins] 1 tab PO DAILY 05/12/20 05/12/20 Unknown nitroglycerin [Nitrostat] 0.4 mg SUBLINGUAL UD PRN 05/12/20 05/12/20 Unknown ursodiol 300 mg PO TID 05/12/20 05/12/20 Unknown Active Medications Generic Name Dose Route Start Last Admin Trade Name Freq PRN Reason Stop Dose Admin Ioversol 93 ml 05/12/20 10:47 05/12/20 10:47 Optiray 320 100ml IV 05/16/20 10:46 93 ml ONCE PRN Administration Interaction Checking Past Medical History Medical History Aortic stenosis CAD (coronary artery disease) Carotid stenosis (Inactive) DM2 (diabetes mellitus, type 2) (Chronic) Glaucoma (Chronic) HLD (hyperlipidemia) (Chronic) HTN (hypertension) (Chronic) NSTEMI (non-ST elevation myocardial infarction) Past Family History Family History Father Cancer throat Mother Diabetes Myocardial infarction Past Surgical History Surgical History H/O carotid endarterectomy (Inactive) H/O hernia repair (Inactive) History of cataract surgery (Inactive) History of cholecystectomy (Inactive) S/P cholecystectomy (Inactive) Social History Smoking Status: Never smoker Hx Alcohol Use: No Hx Substance Use: No Physical Exam Vital Signs Last Vital Signs Temp 37.6 C H 05/12/20 08:43 Pulse 76 05/12/20 13:00 Resp 18 05/12/20 13:00 BP 146/90 H 05/12/20 13:00 Pulse Ox 94 05/12/20 13:00 Testing Laboratory Results 05/12/20 09:10 05/12/20 09:10 PT 11.3 Seconds (9.0-12.0) 05/12/20 09:10 INR 1.1 (0.9-1.1) 05/12/20 09:10 APTT 23.9 Seconds (21.0-31.0) 05/12/20 09:10 Electrocardiogram Date: 05/12/20 Sinus tachycardia Possible Anterior infarct , age undetermined Abnormal ECG When compared with ECG of 23-MAR-2018 06:33, Vent. rate has increased BY 56 BPM Chest X-Ray Date: 05/12/20 IMPRESSION: No acute cardiopulmonary findings. Echocardiogram Date: 03/23/18 LV Function: normal Valvular Disease: + (mild to mod )
--- NOTE | 2020-05-12 15:04 | Magnetic Resonance Report ---
MRCP CLINICAL HISTORY: concern for cholangitis TECHNIQUE: Utilizing a 1.5 Rabia magnet and dedicated coil, multiplanar, multiecho imaging of [facility] er abdomen was performed utilizing heavily T2 weighted pulsing sequences without IV contrast. COMPARISON STUDY: MRCP January 23, 2018. CT of the abdomen and pelvis performed earlier today. FINDINGS: This study is mildly compromised by motion artifact. Patient is status post cholecystectomy and apparent choledochojejunostomy. Mild intrahepatic biliary ductal dilatation is new since MRCP of January 23, 2018. Pneumobilia is better depicted on prior CT. The caliber of the common bile duct is n ormal, measuring 6 mm. There is mild dilatation of the common hepatic duct, measuring 1.1 cm. Evaluat ion for intraluminal calculi is difficult given susceptibility artifact from the adjacent bowel gas a nd artifact from surgical clips however there is probable T2 hypointense material within the common h epatic duct which corresponds to the finding on CT from earlier today. This favors calculi. A mass is within the differential but considered less likely. Liver morphology is normal. A few small T2 hyper intense hepatic lesions are unchanged. A right renal cyst is noted. There is no hydronephrosis. IMPRESSION: Interval development of mild intrahepatic biliary ductal dilatation status post cholecys tectomy and apparent choledochojejunostomy since MRCP of January 23, 2018. Normal caliber common bile d uct. Mild dilatation of the common hepatic duct proximal to the anastomosis with suspected intralumin al T2 hypointense material which corresponds to the finding on prior CT. This favors intraluminal lisseth culi. A mass is within the differential but considered less likely. ACT 112: Negative or not required by law. Electronically signed by: Dano Ferguson M.D. 05/12/2020 3:03 PM
--- OUTSIDE RECORDS SUMMARY | 2020-05-12 16:33 | External Medical Summary | Continuity of Care Document ---
:1940 Author Name Macarena Corona Address Unavailable Unavailable , Care Team Providers Name Role Phone Nachtigall DO Unavailable [email or web address] [email or web address], [email or web address] Unavailable Unavailable Problems Routine history and physical examination of adult (V70.0) (Z 00.00) Allergies and Adverse Reactions Allergy history not documented Medications Medications not documented Procedures Procedures not documented Immunizations Immunizations not documented Plan of Treatment Planned Observations Planned Goals not documented Results No Known Results Results not documented
[2020-05-12] MEDS ORDERED: POLYETHYLENE (MIRALAX) 17 GM PACK PO PRN (16:37)
[2020-05-12] MEDS ORDERED: GLUCAGON FOR INJ 1 MG VIAL SQ PRN (16:37)
[2020-05-12] MEDS ORDERED: ONDANSETRON INJ 2 MG/ML 2 ML VIAL IV PRN (16:37)
[2020-05-12] MEDS ORDERED: GLUCOSE 40% GEL 15 GM TUBE PO PRN (16:37)
[2020-05-12] MEDS ORDERED: CARBOHYDRATES FOR HYPOGLYCEMIA PO PRN (16:37)
[2020-05-12] MEDS ORDERED: ENALAPRILAT 1.25 MG in DEXTROSE 5% 25 ML IV PRN (16:37)
[2020-05-12] MEDS ORDERED: INSULIN ASPART 100 UNITS/ML 3 ML PEN SC SCH (16:37)
[2020-05-12] MEDS ORDERED: MAGNESIUM HYDROXIDE SUSP 30 ML UDC PO PRN (16:37)
[2020-05-12] MEDS ORDERED: GLUCOSE 10 TABS/TUBE PO PRN (16:37)
[2020-05-12] MEDS ORDERED: ACETAMINOPHEN 325 MG TAB PO PRN (16:41)
[2020-05-12] MEDS ORDERED: DEXTROSE 50% 50 ML SYRINGE IV PRN (16:41)
[2020-05-12] MEDS ORDERED: ALUMINUM/MAGNESIUM SUSP 30 ML UDC PO PRN (16:42)
[2020-05-12] MEDS ORDERED: SODIUM CHLORIDE 0.9% 1000ML 1,000 ML IV SCH (16:45)
[2020-05-12] MEDS ORDERED: PIPERACILLIN/TAZOBACTAM 3.375 GM in DEXTROSE 5% 100 ML IV SCH (17:00)
[2020-05-12] MEDS ORDERED: ursodioL 300 MG CAP PO SCH (17:00)
--- NOTE | 2020-05-12 17:24 | Discharge Summary ---
Date of Service May 12, 2020 Admission HPI Per Admitting Provider This is an 79-year-old male who has significant past medical history of CAD with history of JANELL x1 in 2016, T2DM, HTN, HLD, AVS, carotid artery stenosis status post right CEA 2007, POAG, history of recurrent cholangitis status post Bear-en-Y who presents to ED secondary to nausea, abdominal pain, fever and rigors starting at 5 AM. Of significance patient has several recurrent episodes of acute cholangitis due to history of complicated cholecystectomy several years prior status post Bear-en-Y for reconstruction done at [facility]. His current symptoms feel similar to prior episodes. He states he typically req uires hospitalization, IV antibiotics and symptoms resolved. At approximately 5 AM he woke up this morning was feverish, chills, rigors, frontal headache, photophobia, nausea, dry heaves and epigastric abdominal pain. Pain rated approximately 5 out of 10, nothing made better or worse and he was unable to tolerate oral intake this morning. He did not take any of his morning meds. His last BM was this morning and was normal for him, he denies any diarrhea melena or hematochezia. He further denies any sick contacts or known exposure to COVID-19. He has been quarantining since December. He denies any lightheadedness, dizziness, syncope, chest pain, shortness of breath, cough, hematemesis or hemoptysis. His is at bedside. He admits to taking ursodiol for biliary stones. He follows with GI Dr. Barrera. In ED patient was tachycardic and febrile and therefore met SIRS criteria. His lactic acid was 2.0. His white blood cell count was low at 3.93k, H&H stable at 16.7 and 47.9, p latelet 99, BUN 11, creatinine 1.10, glucose 194, mag 1.7, total bilirubin 3.3, direct bili 1.6, AST 79, ALT 84, lipase WNL. Chest x-ray was negative for acute abnormality. CT scan abdomen pelvis revealed small age-indeterminate splenic infarct 2.1 cm along with Mild biliary ductal dilatation status post cholecystectomy and apparent choledochojejunostomy. Suspected intraluminal material within the common hepatic or common bile duct which could reflect calculi. MRCP is recommended. He received IV Zosyn, IV fluid, magnesium supplementation and Compazine while in ED. Since arrival to ED his abdominal pain has subsided. Admission Exam Per Admitting Provider Physical Exam Physical Exam: Constitutional: WD/WN, M, vitals as above, NAD, sitting up in bed, pleasant, conversing easily Head: Normocephalic, Atraumatic Eyes: PERRL, conjunctivae normal, anicteric sclerae ENMT: external ear and nose normal, oropharynx normal Neck: trachea midline, no thyromegaly normal visual inspection Respiratory: normal respiratory effort, lungs clear to auscultation, no wheeze, rales, rhonchi. Normal insp/exp effort, no accessory muscle use Cardiovascular: Tachycardic rate, regular rhythm, harsh 2/6 DA heard throughout precordium, no edema Vessels: no JVD or carotid bruit Chest: normal inspection of chest Abdomen: normal bowel sounds, soft, nontender, no hepatosplenomegaly Musculoskeletal: no cyanosis or clubbing, extremities motor strength 5/5 Skin: no rashes, warm and dry normal turgor Neurologic: PERRL, EOMI, accommodation nl, no face palsy, no dysarthria CN's II-XI intact bilaterally and moves all extremities Psychiatric: A+Ox3, euthymic affect Lymphatic: no cervical or axillary lymphadenopathy : deferred Principal Diagnosis Recurrent cholangitis Splenic infarct Transaminitis Hypomagnesemia Thrombocytopenia Discharge Data Allergies Allergy/AdvReac Type Severity Reaction Status Date / Time Bactrim Allergy Mild HIVES Verified 05/12/20 09:48 Consultations 05/12/20 12:55 ED Decision to Admit Stat 05/12/20 13:28 Consult Gastroenterology Routine 05/12/20 16:08 Burn CD for patient Stat 05/12/20 16:37 Consult Case Management - Discharge Planning Routine Procedures Performed CT ABD: FINDINGS: Lung bases are unremarkable. No pneumatosis, free air or portal venous gas is present. The gallbladder is surgically absent. There are postoperative findings suggestive of choledochojejunostomy. Mild biliary ductal dilatation has developed since CT of June 06, 2015. Possible intraluminal material within the common hepatic or common bile duct is shown on axial image 111 of [id number]. There is no peripancreatic infiltration. A small cystic lesion within the pancreatic tail measuring 1.2 cm is noted. This favors a small side branch IPMN. There is no pancreatic ductal dilatation. Note is made of a 2.1 cm wedge-shaped hypodensity within the inferior aspect of the spleen. The adrenal glands and left kidney are normal. There is no hydronephrosis. Postoperative findings from a ventral hernia repair with mesh are noted. There is no evidence for a bowel obstruction. The caliber and wall thickness of small and large bowel are normal. The appendix is normal. No lymphadenopathy is present. There is no ascites. There are no suspicious osseous lesions. Prostate is moderately enlarged. Fat-containing bilateral inguinal hernias are noted. IMPRESSION: 1. Mild biliary ductal dilatation status post cholecystectomy and apparent choledochojejunostomy. Suspected intraluminal material within the common hepatic or common bile duct which could reflect calculi. MRCP could be obtained for further evaluation. 2. 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 3. No bowel obstruction. Normal appendix. MRCP: FINDINGS: This study is mildly compromised by motion artifact. Patient is status post cholecystectomy and apparent choledochojejunostomy. Mild intrahepatic biliary ductal dilatation is new since MRCP of January 23, 2018. Pneumobilia is better depicted on prior CT. The caliber of the common bile duct is normal, soren uring 6 mm. There is mild dilatation of the common hepatic duct, measuring 1.1 cm. Evaluation for intraluminal calculi is difficult given susceptibility artifact from the adjacent bowel gas and artifact from surgical clips however there is probable T2 hypointense material within the common hepatic duct which corresponds to the finding on CT from earlier today. This favors calculi. A mass is within the differential but considered less likely. Liver morphology is normal. A few small T2 hyperintense hepatic lesions are unchanged. A right renal cyst is noted. There is no hydronephrosis. IMPRESSION: Interval development of mild intrahepatic biliary ductal dilatation status post cholecystectomy and apparent choledochojejunostomy since MRCP of January 23, 2018. Normal caliber common bile duct. Mild dilatation of the common hepatic duct proximal to the anastomosis with suspected intraluminal T2 hypointense material which corresponds to the finding on prior CT. This favors intraluminal calculi. A mass is within the differential but considered less likely. CXR: No acute cardiopulmonary findings. Ordered Studies 05/12/20 09:29 CT abd pelvis IV con only Stat 05/12/20 13:33 MR MRCP Stat Hospital Course (1) Sepsis: (2) Recurrent cholangitis: This is an 79-year-old male who has significant past medical history of CAD with history of JANELL x1 in 2016, T2DM, HTN, HLD, AVS, carotid artery stenosis status post right CEA 2007, POAG, history of recurrent cholangitis status post Bear-en-Y who presents to ED secondary to nausea, abdominal pain, fever and rigors starting at 5 AM In ED patient was tachycardic and febrile and therefore met SIRS criteria. His lactic acid was 2.0. His white blood cell count was low at 3.93k, H&H stable at 16.7 and 47.9, platelet 99, BUN 11, creatinine 1.10, glucose 194, mag 1.7, total bilirubin 3.3, direct bili 1.6, AST 79, ALT 84, lipase WNL. Chest x-ray was negative for acute abnormality. CT scan abdomen pelvis revealed small age-indeterminate splenic infarct 2.1 cm along with Mild biliary ductal dilatation status post cholecystectomy and apparent choledochojejunostomy. Suspected intraluminal material within the common hepatic or common bile duct which could reflect calculi. MRCP is recommended. He received IV Zosyn, IV fluid, magnesium supplementation and Compazine while in ED. Since arrival to ED his abdominal pain has subsided. Per CMS guidelines pt meets SEPSIS criteria likely in setting of acute cholanginits with similar presentation in past. During my evaluation he was tachycardic, febrile and wbc < 4k Broad spectrum IV antibiotic administered. admit to PCU Continue IV Zosyn Obtain MRCP -according to at bedside any further procedure needs to be obtained they would prefer transfer to tertiary center in [place] Consult gastroenterology -appreciate their input Continue IVF resuscitation 100 cc/h Antiemetics N.p.o. except sips and chips (3) Splenic infarct: CT scan abdomen pelvis reveals concern for age-indeterminate small splenic infarct 2.1 cm GI consulted, appreciate their input (4) Elevated LFTs: AST 79, ALT 84, direct bilirubin 0.6, total bilirubin 3.3 Previous bilirubin levels have been elevated Hold statins and avoid hepatotoxic agents GI consulted As above (5) Hypomagnesemia: Order magnesium replacement while in ED Repeat mag in a.m. (6) DM2 (diabetes mellitus, type 2): Last A1c 7.3 on 05/09/2020 Hold metformin and glipizide NovoLog sliding scale per protocol (7) CAD (coronary artery disease): No chest pain or shortness of breath EKG of a sinus tachycardia but no ST or T wave abnormalities History of JANELL to diagonal 06/2016 On ASA, statin, metoprolol and benazepril as outpatient Hold statin in setting of elevated LFTs and hold benazepril in setting of concern for sepsis (8) HTN (hypertension): Blood pressure currently stable Hold benazepril/HCTZ PRN Vasotec SBP greater than 180 (9) Thrombocytopenia: Platelet count 126 on 05/09/2020 and prior to that on 11/07/2019 was 149 Today 99 and trends on lower side in our system He denies prior history He also has low white count Obtain peripheral smear, check Anaplasma and Lyme Would recommend further work-up as outpatient with hematology referral (10) Aortic stenosis: Last echocardiogram 04/18/2019 revealed moderate aortic valve stenosis LVEF 60 to 64%, mild concentric LVH, proximal ascending thoracic aorta mildly enlarged at 4 cm, grade 1 diastolic dysfunction Currently euvolemic Monitor closely given IV fluid resuscitation (11) HLD (hyperlipidemia): statin on hold (12) Glaucoma: Continue Cosopt and latanoprost (13) DVT prophylaxis: SCD/teds in setting of low platelets Disposition: Admit to telemetry Follow-up: PCP Dr. Smyth upon discharge Patient was seen and examined in collaboration with Dr. Villatoro please see addendum Total Time Total Time Spent Total Time Spent (In Minutes): 65 minutes Discharge Plan Discharge Items Patient Disposition: Transfer Acute Care Hospital Reason For Visit: CHOLANGITIS Discharge Diagnosis: Acute cholangitis Splenic Infarct Hypomagnesemia Hyperglycemia Activity: Per Instructions section Exercise/Sports: Wait until after follow-up appointment Non-emergency contact: Primary Care Provider and [employer] Call non-emergency contact if: you have any medication questions, your symptoms worsen, your pain is not controlled, your pain is worsening, your pain is unusual for you, your pain is concerning for you and you have a fever Follow-up/Referrals: Delroy Smyth MD [Primary Care Provider] - Diet: Carb Consistent or DM2 Addtl Attending Provider Instructions: Follow up with Dr.Tossapol Duffy, Gastroenterology, [facility] for further management Seek immediate medical attention if your symptoms reoccur or worsen Pending Studies at Discharge: Yes Studies:: Blood Cultures Stand-Alone Forms: My [facility] Skilled Items Patient informed of condition?: Yes DNR: No Discharge Level of Care: Other Communicable Disease: No Discharge Prognosis: Stable Lines: Peripheral IV Urinary Catheter: No Medications and DC Order Prescriptions: Continued multivitamin [Multiple Vitamins] Tablet 1 tab PO DAILY RF: 0 latanoprost [Xalatan] 0.005 % Drops 1 drp OPR PM RF: 0 atorvastatin [Lipitor] 40 mg Tablet 40 mg PO DAILY RF: 0 glipizide 10 mg Tablet 10 mg PO DAILY RF: 0 benazepril-hydrochlorothiazide 20-12.5 mg Tablet 1 tab PO DAILY RF: 0 aspirin [Aspirin Low Dose] 81 mg Tablet,Delayed Release (Dr/Ec) 81 mg PO DAILY RF: 0 ursodiol 300 mg Capsule 300 mg PO TID RF: 0 nitroglycerin [Nitrostat] 0.4 mg Tablet, Sublingual 0.4 mg sublingual UD PRN (Reason: Chest Pain) RF: 0 metoprolol succinate [Toprol XL] 25 mg Tablet Extended Release 24 Hr 12.5 mg PO DAILY RF: 0 metformin 500 mg Tablet Extended Release 24 Hr 500 mg PO BID RF: 0 dorzolamide-timolol (PF) [Cosopt (PF)] 2-0.5 % Dropperette 1 drp OPR BID RF: 0 Discharge Orders: Discharge Order (Routine); Ordered 05/12/20 Ordered By: Manpreet Villatoro Admission Data Admit Date/Time: 05/12/20 13:28 Attending Provider: Manpreet Villatoro Admit Provider: Manpreet Villatoro Primary Care Provider: Delroy Smyth Other Providers: Manpreet Villatoro ; Armando Chavez Supervising Physician Co-Signing Physician Notes Patient is an 79-year-old male with history of recurrent cholangitis S/P hepaticojejunostomy/choledochojejunostomy with Bear en Y from bile duct injury and other medical problems presents with history of nausea, abdominal pain, fever and Rigors since this morning. His abdominal pain is predominantly epigastric,5/10 intensity and he feels the symptoms are similar to his prior cholangitis episodes. CT abdomen, MRCP consistent with intraluminal calculi with mild dilatation of the common bile duct proximal to the anastomosis. He was noted to have hyperbilirubinemia, transaminitis, hypomagnesemia, leukopenia. On exam patient is moderately built and nourished, no apparent distress, normocephalic atraumatic, lungs are clear to auscultation, S1-S2, +murmur, no pedal edema, abdomen soft, nontender, no rebound, guarding or rigidity, normal bowel sounds, grossly no focal neurologic deficits,+ icterus. Patient is in itially admitted for management of acute cholangitis. He started on Zosyn, IV fluids and kept n.p.o. Appreciate gastroenterology input. Patient has complicated anatomy, Bear en Y choledochojejuonostomy, it would be difficult for stone removal using standard ERCP and would likely need a balloon to reach or axios stent between both limbs Vs PTC. Discussed with [facility] [place] gastroenterology Dr.Tossapol Duffy who kindly accepted the patient for further evaluation and management. Also discussed with Dr. Navarro Mak who would be helping with coordinating with transfer. Patient is made aware of his condition and he agrees to be transferred as well. I personally reviewed the record. Patient is interviewed and examined at bedside. Patient's care is coordinated with Zulema Connolly PA-C. Please refer to the documentation above for details of patient's presentation and for discussion of other issues.
[2020-05-12 17:26] LABS: Lyme Ab IgG w/WB Rflx Negative (Negative)
[2020-05-12 17:27] LABS: Lyme Ab IgM w/WB Rflx Negative (Negative)
[2020-05-12] MEDS ORDERED: LATANOPROST 0.005% OP SOLN 2.5 ML BTL OPR SCH (21:00)
[2020-05-12] MEDS ORDERED: DORZOLAMIDE/TIMOLOL 22.3/6.8MG/ML 10 ML BTL OP SCH (21:00)
--- NOTE | 2020-05-12 21:24 | Communication Note ---
Date of Service: May 12, 2020 Blood Cultures positive 2/2 for GNR. Pt previously transferred to [facility] for higher level care. [facility] called, results signed out to admitting nurse @ [facility]
--- NOTE | 2020-05-13 08:00 | Electrocardiogram Report ---
Test Reason : Blood Pressure : / mmHG Vent. Rate : 105 BPM Atrial Rate : 105 BPM P-R Int : 162 ms QRS Dur : 086 ms QT Int : 336 ms P-R-T Axes : 035 -22 053 degrees QTc Int : 444 ms Sinus tachycardia Poor R wave progression, consider anterior AK vs. lead placement vs. LVH Abnormal ECG When compared with ECG of 23-MAR-2018 06:33, Vent. rate has increased BY 56 BPM Confirmed by Marty Law ([id number]) on 05/13/2020 7:59:58 AM Referred By: REFERRED SELF Confirmed By:Marty Law
[2020-05-13] MEDS ORDERED: MULTIVITAMIN TAB PO SCH (09:00)
[2020-05-13] MEDS ORDERED: METOPROLOL SUCC 25MG EXT REL TAB PO SCH (09:00)
[2020-05-13] MEDS ORDERED: ASPIRIN 81 MG ECTAB PO SCH (09:00)
== END 2020-05-12 19:58 | disposition short-term general hospital (02) | DRG 872 ==
LOC: EDBD → ED 08:39 → MERGE 08:39 → 2S 13:28